=== PATIENT | female | born 1955 | race Caucasian/White ===

== ENCOUNTER 2019-08-27 19:55 | Inpatient (IN) | payer OTHER ==
[2019-08-27] MEDS ORDERED: ACETAMINOPHEN TAB 500 MG TAB PO STA (20:55)
--- NOTE | 2019-08-27 20:58 | ED ---
General Adult HPI - General Chief complaint: Shortness of Breath Stated complaint: SOB Time Seen by Provider: 08/27/19 20:35 Source: patient, RN notes reviewed Mode of arrival: ambulatory Limitations: no limitations - History of Present Illness Initial comments: Patient is a pleasant 63-year-old female presenting to the emergency Department with complaints of fever and shortness of breath. Symptoms started 3-4 days ago with fever. Patient has occasional myalgias. Patient has had cough. Cough was dry and then clear sputum. Now with occasional mild pink sputum. Patient does feel somewhat short of breath. Patient is fatigued. Patient denies any history of similar symptoms previously. No chronic lung disease or asthma or COPD. - Related Data Allergies Allergy/AdvReac Type Severity Reaction Status Date / Time soap Allergy Rash/Hives Verified 08/27/19 20:28 Review of Systems ROS Statement: Those systems with pertinent positive or pertinent negative responses have been documented in the HPI. ROS Other: All systems not noted in ROS Statement are negative. Constitutional: Reports: fever, chills Eyes: Denies: eye pain ENT: Denies: ear pain Respiratory: Reports: cough, dyspnea Cardiovascular: Denies: chest pain Endocrine: Reports: fatigue Gastrointestinal: Denies: abdominal pain Genitourinary: Denies: dysuria Musculoskeletal: Denies: back pain Skin: Denies: rash Neurological: Denies: weakness Past Medical History Past Medical History: GERD/Reflux, Hypertension History of Any Multi-Drug Resistant Organisms: MRSA MDRO Source:: elbow 2009 Additional Past Surgical History / Comment(s): esophagus surgery for GERD. Past Psychological History: Anxiety, Depression Smoking Status: Former smoker Past Alcohol Use History: None Reported Past Drug Use History: Marijuana General Exam Limitations: no limitations General appearance: alert, in no apparent distress Head exam: Present: normocephalic Eye exam: Present: normal appearance Neck exam: Present: normal inspection Respiratory exam: Present: normal lung sounds bilaterally Cardiovascular Exam: Present: regular rate, normal rhythm GI/Abdominal exam: Present: soft. Absent: tenderness Extremities exam: Present: normal inspection. Absent: pedal edema, calf tenderness Neurological exam: Present: alert Psychiatric exam: Present: normal affect, normal mood Skin exam: Present: normal color Course Vital Signs 08/27/19 08/27/19 08/27/19 20:23 22:22 23:10 Temperature 100.6 F H 99.0 F Pulse Rate 108 H 105 H 87 Respiratory 22 18 18 Rate Blood Pressure 139/80 116/72 116/73 O2 Sat by Pulse 96 98 95 Oximetry - Reevaluation(s) Reevaluation #1: 08/27/19 23:26 Patient does meet sepsis criteria diagnosed at 2320. Blood culture and lactic acid and IV antibiotics have all been ordered. Patient reevaluated and updated. Case was discussed in detail with Dr. Aguilera, who will admit covering for hospital call. EKG Findings - EKG Comments: EKG Findings:: Normal sinus rhythm 92. ME 134. QRS 90. QT 374. QTC 462. Left axis. Normal QRS. Nonspecific T waves. Medical Decision Making - Lab Data Result diagrams: 08/27/19 22:01 Lab Results 08/27/19 08/27/19 08/27/19 Range/Units 22:01 22:01 22:01 WBC 25.6 H (3.8-10.6) k/uL RBC 4.57 (3.80-5.40) m/uL Hgb 13.1 (11.4-16.0) gm/dL Hct 40.3 (34.0-46.0) % MCV 88.1 (80.0-100.0) fL MCH 28.7 (25.0-35.0) pg MCHC 32.6 (31.0-37.0) g/dL RDW 12.6 (11.5-15.5) % Plt Count 301 (150-450) k/uL Neutrophils % 87 % Lymphocytes % 6 % Monocytes % 5 % Eosinophils % 1 % Basophils % 0 % Neutrophils # 22.2 H (1.3-7.7) k/uL Lymphocytes # 1.6 (1.0-4.8) k/uL Monocytes # 1.3 H (0-1.0) k/uL Eosinophils # 0.2 (0-0.7) k/uL Basophils # 0.1 (0-0.2) k/uL PT 10.0 (9.0-12.0) sec INR 1.0 (<1.2) APTT 23.0 (22.0-30.0) sec D-Dimer 0.73 H (<0.60) mg/L FEU Plasma Lactic Acid Kayden 1.1 (0.7-2.0) mmol/L - Radiology Data Radiology results: image reviewed (Chest x-ray shows left lower infiltrate and atelectasis.) Critical Care Time Critical Care Time: Yes Total Critical Care Time: 32 Disposition Clinical Impression: Pneumonia, Sepsis Disposition: ADMITTED IP TO THIS [facility] Condition: Serious Is patient prescribed a controlled substance at d/c from ED?: No Referrals: Nonstaff,Physician [Primary Care Provider] - 1-2 days Decision Time: 23:27
--- NOTE | 2019-08-27 21:47 | XR ---
EXAMINATION TYPE: XR chest 1V portable DATE OF EXAM: 08/27/2019 COMPARISON: NONE HISTORY: Cough and fever TECHNIQUE: Single view FINDINGS: There is some linear infiltrate and atelectasis left lower lobe. Right lung is clear. There is no heart failure. Bony thorax is intact. 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 IMPRESSION: Mild linear infiltrate and atelectasis left lower lobe.
[2019-08-27] MEDS ORDERED: cefTRIAXone IN SWFI 1,000 MG/10 ML SYRINGE IVP STA (21:49)
[2019-08-27 22:18] LABS: Basophils # (A) 0.1 k/uL (0-0.2); Basophils % (A) 0 %; Eosinophils # (A) 0.2 k/uL (0-0.7); Eosinophils % (A) 1 %; HCT 40.3 % (34.0-46.0); HGB 13.1 gm/dL (11.4-16.0); Lymphocytes # (A) 1.6 k/uL (1.0-4.8); Lymphocytes % (A) 6 %; MCH 28.7 pg (25.0-35.0); MCHC 32.6 g/dL (31.0-37.0); MCV 88.1 fL (80.0-100.0); Mean Platelet Volume 7.5; Monocytes # (A) 1.3 k/uL (0-1.0); Monocytes % (A) 5 %; Neutrophils # (A) 22.2 k/uL (1.3-7.7); Neutrophils % (A) 87 %; Platelet Count 301 k/uL (150-450); RBC 4.57 m/uL (3.80-5.40); RDW 12.6 % (11.5-15.5); WBC 25.6 k/uL (3.8-10.6)
[2019-08-27 22:29] LABS: Albumin 4.7 g/dL (3.5-5.0); Calcium 9.4 mg/dL (8.4-10.2); Total Bilirubin 0.6 mg/dL (0.2-1.3); Total Protein 8.2 g/dL (6.3-8.2)
[2019-08-27 23:05] LABS: D-Dimer 0.73 mg/L FEU (<0.60)
[2019-08-27] MEDS ORDERED: IPRATROPIUM-ALBUTEROL 3 ML NEB INHALATION PRN (23:27)
[2019-08-27] MEDS ORDERED: PNEUMONIA PROTOCOL UTILIZED 1 EACH MISC PO PRN (23:27)
[2019-08-27] MEDS ORDERED: AZITHROMYCIN 500 MG in SODIUM CHLORIDE 0.9% 250 ML IVPB STA (23:27)
[2019-08-27] MEDS ORDERED: ONDANSETRON 4 MG/2 ML VIAL IVP STA (23:58)
[2019-08-27 23:59] LABS: Magnesium 2.3 mg/dL (1.6-2.3); Potassium 4.9 mmol/L (3.5-5.1)
[2019-08-28 00:37] LABS: C Reactive Protein 554.5 mg/L (<10.0)
--- NOTE | 2019-08-28 03:10 | CT ---
EXAMINATION TYPE: CT angio chest DATE OF EXAM: 08/28/2019 COMPARISON: None HISTORY: SOB CT DLP: 397.60 mGycm Automated exposure control for dose reduction was used. CONTRAST: Performed with IV Contrast, patient injected with 100 mL of Isovue 370. There are 3-D post processed images. There is some airspace consolidation in the posterior left lower lobe. There is some mild infiltrate also in the lingula left upper lobe. There is mild atelectasis at the lung bases. Heart size is fátima l. There is no pericardial effusion. There is no pleural effusion. Upper abdominal soft tissues are i ntact. Thoracic aorta appears normal. There is no sign of aneurysm or dissection. The ascending aorta measur es 3.4 cm. There is no mediastinal adenopathy. There are no hilar masses. There is normal contrast op acification of the pulmonary arteries. I see no filling defect. The bony thorax is intact. Upper abdo melissa soft tissues are intact. There is no thoracic compression fracture. IMPRESSION: No evidence of pulmonary embolism. There is pneumonia in the left lower lobe and also small pneumonia in the lingula left upper lobe.
[2019-08-28] MEDS ORDERED: LORazepam 1 MG TAB PO PRN (03:23)
--- NOTE | 2019-08-28 03:36 | P.HPIM ---
History of Present Illness H&P Date: 08/28/19 Chief Complaint: coughin , fever 63-year-old female with hypertension, hyperlipidemia, gerd Patient comes in due to one-week history of productive coughing of initially clear then became whitish pinkish sputum with pleuritic chest pain and shortness of breath also admits to sore throat fevers and chills. She denies any sick contacts however she has recently traveled from [place] and arrived here in [place] about 10 days ago she drove by car she reports that she is been extremely careful following self hygiene contact precautions wearing mask and self isolating. She denies any sick contacts or contacts of any known Covid patient's The symptoms progressed and became worse now associated with dry heaves. Which is not improving with Zofran in the ED She also says that she had a tick bite when she was working in her mother's yard Otherwise she denies any abdominal pain diarrhea or changes in her urinary habits denies any GI bleeding. She has hypertension controlled with lisinopril She takes aspirin and atorvastatin at home for hyperlipidemia Visit history of GERD status post nisin fundoplication In the ED chest x-ray showed left lower lobe infiltrate CT angios the chest due to elevated d-dimer showed consolidation left lower lobe with no PE Patient admitted for pneumonia with sepsis her white counts 25 she has elevated LDH and CRP EKG showed diffuse T wave inversion Lactic acid was 1.1 Review of Systems Pertinent positives as noted in HPI. All other systems were reviewed and are negative Past Medical History Past Medical History: GERD/Reflux, Hypertension History of Any Multi-Drug Resistant Organisms: MRSA MDRO Source:: elbow 2009 Additional Past Surgical History / Comment(s): esophagus surgery for GERD. Past Psychological History: Anxiety, Depression Smoking Status: Former smoker Past Alcohol Use History: None Reported Past Drug Use History: Marijuana - Past Family History family Family Medical History: No Reported History Medications and Allergies Allergies Allergy/AdvReac Type Severity Reaction Status Date / Time soap Allergy Rash/Hives Verified 08/27/19 20:28 Physical Exam Vitals: Vital Signs Temp Pulse Resp BP Pulse Ox 08/28/19 00:09 96 08/28/19 00:04 85 18 111/70 94 L 08/27/19 23:10 87 18 116/73 95 08/27/19 22:22 99.0 F 105 H 18 116/72 98 08/27/19 20:23 100.6 F H 108 H 22 139/80 96 Intake and Output 08/27/19 08/27/19 08/28/19 14:59 22:59 06:59 Other: Weight 77.111 kg Constitutional: No acute distress, conversant, pleasant Eyes: Anicteric sclerae, moist conjunctiva, Pupils equal round reactive to light ENMT: NC/AT Oropharynx clear, no erythema, or exudates Neck: Supple, FROM, no masses, or JVD No carotid bruits No thyromegaly Lungs: decrease breath sounds, due to poor effort secondary to pleuritic chest pain Clear to percussion Normal respiratory effort, no accessory muscle use Cardiovascular: Heart regular in rate and rhythm, No murmurs, gallops, or rubs No peripheral edema Abdominal: Soft Nontender, no guarding, rebound or rigidity Abdomen moving with respiration Normoactive bowel sounds No hepatomegaly, No splenomegaly No palpable mass No abdominal wall hernia noted Skin: Normal temperature, tone, texture, turgor No induration No subcutaneous nodules No rash, lesions No ulcers Extremities: No digital cyanosis No clubbing Pedal pulses intact and symmetrical Radial pulses intact and symmetrical No calf tenderness Psychiatric: Alert and oriented to person, place and time Appropriate affect fair judgement Neuro Muscles Strength 5/5 in all 4 extremities Sensation to light touch grossly present throughout Cranial nerves II-XII grossly intact No focal sensory deficits Lymphatics: no palpable cervical or supraclavicular , or inguinal lymph nodes Results CBC & Chem 7: 08/27/19 22:01 08/27/19 22:01 Labs: Abnormal Lab Results - Last 24 Hours (Table) 08/27/19 08/27/19 08/27/19 Range/Units 22:01 22:01 22:01 WBC 25.6 H (3.8-10.6) k/uL Neutrophils # 22.2 H (1.3-7.7) k/uL Monocytes # 1.3 H (0-1.0) k/uL D-Dimer 0.73 H (<0.60) mg/L FEU Sodium 135 L (137-145) mmol/L Carbon Dioxide 21 L (22-30) mmol/L BUN 19 H (7-17) mg/dL Glucose 108 H (74-99) mg/dL AST 42 H (14-36) U/L Lactate Dehydrogenase 918 H (313-618) U/L C-Reactive Protein 554.5 H (<10.0) mg/L Assessment and Plan Assessment: 63-year-old female with hypertension and hyperlipidemia comes in due to one-week history of productive cough shortness of breath fevers and chills diagnosed with community-acquired pneumonia and sepsis admitted for IV antibiotics and rule out covid sepsis community acquired pneumonia, rule out COVID 19 rocephine and azithro follow up culture follow COVID results pain control supplemental oxygen IVF hydration breathing treatment pRN CTA chest , no PE, left lower lobe consolidation chronic conditions hypertension chronic GERD hyperlipidemia resume home meds CODE STATUS:full code DVT prophylaxis: hepairn sc tid Discussed with: Patient, ER, RN Anticipated length of stay > than [address]: home A total of 75 minutes was spent on the care of this complex patient more than 50% of the time was spent in counseling and care coordination.
[2019-08-28] MEDS: PROCHLORPERAZINE 10 MG TAB PO PRN ×2 (03:39→12:27)
[2019-08-28] MEDS: ASPIRIN 81 MG PO SCH ×2 (03:42→21:30)
[2019-08-28] MEDS: ATORVASTATIN 20 MG TAB PO SCH ×2 (03:42→21:30)
[2019-08-28] MEDS: SODIUM CHLORIDE 0.9% 1,000 ML IV SCH ×3 (03:43→21:31)
[2019-08-28] MEDS: ACETAMINOPHEN TAB 325 MG TAB PO PRN ×2 (05:54→15:09)
--- NOTE | 2019-08-28 08:14 | XR ---
EXAMINATION TYPE: XR chest 1V DATE OF EXAM: 08/28/2019 COMPARISON: 08/27/2019 chest x-ray and CT dated 08/28/2019 HISTORY: Follow-up for pneumonia. TECHNIQUE: Single frontal view of the chest is obtained. FINDINGS: Stable small lingular opacity. Left upper lobe opacity seen on the prior CT is not demonst rated radiographically. Cardiomediastinal silhouette is stable. Right lung is well aerated. No acute osseous process. Degenerative change of the spine and shoulders. IMPRESSION: Stable lingular opacity. The previously seen left upper lobe opacity in the prior CT is not seen on chest x-ray.
[2019-08-28] MEDS: AZITHROMYCIN 500 MG TAB PO SCH (08:37)
[2019-08-28] MEDS: PANTOPRAZOLE 40 MG TABLET PO SCH ×2 (08:38→21:30)
[2019-08-28] MEDS: HEPARIN SODIUM,PORCINE 5,000 UNIT/ML 1 ML VIAL SQ SCH ×4 (08:38→23:53)
[2019-08-28] MEDS: LISINOPRIL 20 MG TAB PO SCH (08:38)
[2019-08-28] MEDS: IPRATROPIUM-ALBUTEROL 3 ML NEB INHALATION SCH ×4 (09:09→19:50)
--- NOTE | 2019-08-28 11:08 | P.PN ---
Progress Note - Text Progress Note Date: 08/28/19 Patient was seen and examined, she is currently on antibiotics for community- acquired pneumonia. Follow WBC and other labs in am. Covid 19 test sent and is currently pending.
[2019-08-28 20:00] LABS: Ferritin 215.1 ng/mL (10.0-291.0)
[2019-08-29] MEDS: SODIUM CHLORIDE 0.9% 1,000 ML IV SCH ×2 (05:20→16:11)
[2019-08-29] MEDS: IPRATROPIUM-ALBUTEROL 3 ML NEB INHALATION SCH ×4 (07:20→19:37)
[2019-08-29] MEDS: LISINOPRIL 20 MG TAB PO SCH (08:11)
[2019-08-29] MEDS: HEPARIN SODIUM,PORCINE 5,000 UNIT/ML 1 ML VIAL SQ SCH ×3 (08:11→23:26)
[2019-08-29] MEDS: PANTOPRAZOLE 40 MG TABLET PO SCH ×2 (08:11→17:32)
[2019-08-29] MEDS: AZITHROMYCIN 500 MG TAB PO SCH (08:11)
[2019-08-29 08:33] LABS: Basophils # (A) 0.1 k/uL (0-0.2); Basophils % (A) 0 %; Eosinophils # (A) 0.1 k/uL (0-0.7); Eosinophils % (A) 1 %; HCT 38.2 % (34.0-46.0); HGB 12.6 gm/dL (11.4-16.0); Hypochromasia Slight; Lymphocytes # (A) 1.9 k/uL (1.0-4.8); Lymphocytes % (A) 10 %; MCH 29.6 pg (25.0-35.0); MCHC 32.8 g/dL (31.0-37.0); MCV 90.1 fL (80.0-100.0); Monocytes # (A) 1.4 k/uL (0-1.0); Monocytes % (A) 7 %; Neutrophils # (A) 15.8 k/uL (1.3-7.7); Neutrophils % (A) 81 %; Platelet Count 283 k/uL (150-450); RBC 4.24 m/uL (3.80-5.40); RDW 12.9 % (11.5-15.5); WBC 19.6 k/uL (3.8-10.6)
[2019-08-29 09:12] LABS: ALT 65 U/L (4-34); AST 101 U/L (14-36); African American GFR (CKD) >90 (>60 ml/min/1.73 sqM); Albumin 3.5 g/dL (3.5-5.0); Alkaline Phosphatase 115 U/L (38-126); Anion Gap 14 mmol/L; Blood Urea Nitrogen 10 mg/dL (7-17); Calcium 8.4 mg/dL (8.4-10.2); Carbon Dioxide 21 mmol/L (22-30); Chloride 104 mmol/L (98-107); Glucose 111 mg/dL (74-99); Magnesium 2.1 mg/dL (1.6-2.3); Non-African American GFR(CKD) >90 (>60 ml/min/1.73 sqM); Phosphorus 2.1 mg/dL (2.5-4.5); Potassium 4.3 mmol/L (3.5-5.1); Sodium 139 mmol/L (137-145); Total Bilirubin 0.3 mg/dL (0.2-1.3); Total Protein 6.4 g/dL (6.3-8.2)
[2019-08-29] MEDS ORDERED: BUTALB/APAP/CAFF 50-325-40MG TAB PO STA (12:54)
--- NOTE | 2019-08-29 13:01 | P.PN ---
Subjective Progress Note Date: 08/29/19 Principal diagnosis: SOB Patient has been having hemoptysis with her coughing over the past 3-4 days. She is still continuing to have shortness of breath and weakness with walking. She also has left lower rib cage pain. No fevers or chills. No nausea or vomiting. Objective - Vital Signs Vital signs: Vital Signs Temp 99.5 F 08/29/19 07:25 Pulse 84 08/29/19 11:16 Resp 18 08/29/19 07:25 BP 149/75 08/29/19 07:25 Pulse Ox 93 L 08/29/19 07:25 Intake & Output 08/28/19 08/29/19 08/29/19 18:59 06:59 18:59 Intake Total 800 Balance 800 Intake: IV 800 Sodium Chloride 0.9% 1, 800 000 ml @ 100 mls/hr IV . Q10H [facility] Rx#:[id number] Other: Voiding Method Toilet # Voids 1 - Exam Constitutional: No acute distress, conversant, pleasant Eyes:Anicteric sclerae, moist conjunctiva, no lid-lag, PERRLA, ENMT: Oropharynx clear, no erythema, exudates Neck: Supple, FROM, no masses, or JVD, No carotid bruits, No thyromegaly Lungs: Clear to auscultation, Clear to percussion, Normal respiratory effort, no accessory muscle use Cardiovascular: Heart regular in rate and rhythm, No murmurs, gallops, or rubs, No peripheral edema Abdominal: Soft, Nontender, no guarding, rebound or rigidity, Normoactive bowel sounds, No hepatomegaly, No splenomegaly, No palpable mass Skin: Normal temperature, tone, texture, turgor, no induration, No subcutaneous nodules, No rash, lesions, No ulcers Extremities: No digital cyanosis, No clubbing, Pedal pulses intact and symmetrical, Radial pulses intact and symmetrical, No calf tenderness Psychiatric: Alert and oriented to person, place and time, appropriate affect, intact judgement Neuro: Muscles Strength 5/5 in all 4 extremities, Sensation to light touch grossly present throughout, Cranial nerves II-XII grossly intact, no focal sensory deficits - Labs CBC & Chem 7: 08/29/19 08:02 08/29/19 08:02 Labs: Abnormal Lab Results - Last 24 Hours (Table) 08/27/19 08/29/19 08/29/19 Range/Units 22:01 08:02 08:02 WBC 19.6 H (3.8-10.6) k/uL Neutrophils # 15.8 H (1.3-7.7) k/uL Monocytes # 1.4 H (0-1.0) k/uL Carbon Dioxide 21 L (22-30) mmol/L Glucose 111 H (74-99) mg/dL Phosphorus 2.1 L (2.5-4.5) mg/dL AST 101 H (14-36) U/L ALT 65 H (4-34) U/L Procalcitonin 0.35 H (0.02-0.09) ng/mL Microbiology - Last 24 Hours (Table) 08/27/19 20:30 Gram Stain - Preliminary Sputum Sputum Culture - Preliminary 08/27/19 22:01 Blood Culture - Preliminary Blood No Growth after 24 hours Assessment and Plan Plan: sepsis/community acquired pneumonia, COVID 19 ruled out, tested negative 2 Continue rocephine and azithro Prednisone Blood and sputum culture is pending supplemental oxygen IVF hydration breathing treatment pRN CTA chest , no PE, left lower lobe consolidation Headaches and left lower rib cage pain Fioricet when necessary Mouth herpes ulcers Start acyclovir 400 mg 3 times a day for 7 days per IDs recommendation chronic conditions hypertension chronic GERD hyperlipidemia resume home meds Discussed with: Patient Anticipated discharge: 2-[address]: home
[2019-08-29] MEDS: PROCHLORPERAZINE 10 MG TAB PO PRN ×2 (13:08→18:23)
[2019-08-29] MEDS: ACYCLOVIR 200 MG CAP PO SCH ×2 (13:09→20:56)
[2019-08-29] MEDS: BUTALB/APAP/CAFF 50-325-40MG TAB PO PRN (18:24)
--- NOTE | 2019-08-29 19:06 | CONS ---
CONSULTATION PULMONARY/CRITICAL CARE CONSULTATION: DATE OF SERVICE: 08/29/2019 This is a very pleasant 63-year-old female who presented to the emergency department on August 26 at 1955 hours. She apparently was complaining of fever and shortness of breath. She had had symptoms for about 3 or 4 days prior to presenting to the emergency department. She also has occasional muscle aches. She did have a cough. The cough was dry and then she would produce occasional clear phlegm. Also, more recently, she was coughing up some blood. The patient is feeling a bit better today than she did when she first came in. She does still have some shortness of breath, particularly on exertion. She is feeling fatigued. She denies any chest pain or chest discomfort. She also denies any headache or any neurologic complaints. Likewise, she denies any nausea, vomiting, diarrhea or abdominal pain. She also denies all genitourinary complaints. She denies any prior history of chronic lung disease, including asthma, COPD, emphysema, etc. ALLERGIES: SOAP. HOME MEDICATIONS: Home medications include Fioricet, Mycostatin cream, vitamin B complex, Flonase nasal spray, multiple vitamins, vitamin D3 with calcium, low-dose aspirin, Ativan, Lipitor and lisinopril. MEDICAL HISTORY: Medical history is reviewed. She has a history of hypertension and acid reflux disease. She also has a prior history of MRSA infection involving the elbow back in 2009. SURGICAL HISTORY: Her surgical history includes, among other things, esophageal surgery for gastroesophageal reflux disease. SOCIAL HISTORY: Positive for remote minimal tobacco use. She denies any alcohol use. She has used marijuana in the past. FAMILY HISTORY: Noncontributory. Mother and father are both apparently healthy. REVIEW OF SYSTEMS: CONSTITUTIONAL: Negative. NEUROLOGIC: Negative. HEENT: Negative. CARDIOVASCULAR: Negative. PULMONARY: Shortness of breath, cough, occasional phlegm production, occasional hemoptysis. GI: Negative. : Negative. RHEUMATOLOGIC: Negative. IMMUNOLOGIC: Negative. ENDOCRINOLOGIC: Negative. DERMATOLOGIC: Negative. PHYSICAL EXAMINATION: VITAL SIGNS: Current vital signs are reviewed. T-max is 102.5. Current temperature is 99.5. Heart rate 86, respiratory rate 18, blood pressure 149/75, mean 99, and 3-liter saturation is between 93% and 95%. GENERAL APPEARANCE: Appears in no acute distress. HEENT: Examination is grossly unremarkable. Nasal oxygen noted. NECK: Supple. Full range of motion. No adenopathy. Neck veins are flat. CARDIOVASCULAR: Examination reveals regular rhythm and rate. S1, S2 normal. No S3, S4 or murmur. Heart sounds are distant. LUNGS: Lungs reveal a few scattered mild rhonchi. No wheezes or crackles. Breath sounds equal. Lung auscultation is very unimpressive. ABDOMEN: Soft. Bowel sounds are heard. EXTREMITIES: Extremities are intact. No cyanosis, clubbing or edema. SKIN: Without rash. NEUROLOGIC: Neurologic examination is brief but nonfocal. LABS: Reviewed. White count was 19.6, hemoglobin 12.6, hematocrit 38.2, platelet count 283,000. On 08/26 her white blood count was 25.6. PT, INR, PTT all normal. D-dimer 0.73. Sodium, potassium, chloride all normal. CO2 21. BUN and creatinine were 10 and 0.7. Anion gap was 14. Glucose 111, phosphorus 2.1. AST and ALT were 101 and 65, respectively. LDH 918. C-reactive protein 554. Ferritin level was 215.1. Procalcitonin 0.35. COVID-19 testing was negative. Microbiologic tests, including blood and sputum sampling, were negative. Chest x-ray from 08/26 shows evidence of some 08/27 shows no evidence of pulmonary embolism. There are mostly some patchy infiltrates both in the left upper lobe and left lower lobe. CURRENT MEDICATIONS: Current medications are reviewed. She is on Tylenol, acyclovir, aspirin, Lipitor, azithromycin, Symbicort, Rocephin, Fioricet, subcutaneous heparin, DuoNeb, lisinopril, Ativan, Protonix, pneumonia protocol, prednisone 30 mg a day, Compazine and saline IV. ASSESSMENT: 1. Pneumonia, community-acquired, left lower lobe and left upper lobe, with COVID-19 ruled out. 2. Gastroesophageal reflux disease. 3. Hypertension. 4. Hyperlipidemia. 5. Allergic rhinitis. 6. No significant history of intrinsic pulmonary disease. PLAN: Currently, the patient is on appropriate medications, including DuoNeb, Symbicort and steroids. She does apparently have a history she remembers of mild asthma. This did not come out initially. Hence she is currently on Symbicort, updrafts and a small dose of prednisone. She is on good antibiotics in form of the ceftriaxone and Zithromax. Will continue to follow. Prognosis is guarded. Follow-up chest x-ray down the road. The x-ray shows a very non-impressive infiltrate in the left lower lobe. MMODL / IJN: [id number] /
[2019-08-29] MEDS: ACETAMINOPHEN TAB 325 MG TAB PO PRN (19:32)
[2019-08-29] MEDS: SYMBICORT 160-4.5 MCG INHALER INHALATION SCH (19:37)
[2019-08-29] MEDS ORDERED: HEPARIN SODIUM,PORCINE 5,000 UNIT/ML 1 ML VIAL SQ SCH (20:43)
[2019-08-29] MEDS: ASPIRIN 81 MG PO SCH (20:56)
[2019-08-29] MEDS: ATORVASTATIN 20 MG TAB PO SCH (20:56)
[2019-08-29] MEDS: LEVOFLOXACIN 750 MG TAB PO SCH (23:26)
[2019-08-30] MEDS: BUTALB/APAP/CAFF 50-325-40MG TAB PO PRN ×4 (00:19→21:14)
[2019-08-30] MEDS: SODIUM CHLORIDE 0.9% 1,000 ML IV SCH ×3 (01:13→21:16)
--- NOTE | 2019-08-30 01:16 | P.CONS ---
History of Present Illness - Reason for Consult Consult date: 08/29/19 R/O covid , pneumonia Requesting physician: Wanda Ly - Chief Complaint shortness of breath and cough x 4 days - History of Present Illness Patient is 63-year female presenting to the ER at [facility] 2 days ago with chief complaints of increasing shortness of breath and cough patient still has going on since the weekend for about 3 to 4 days before she presented to hospital patient started not feeling well and rundown and then started having a cough which was initially dry moderate intensity subsequently has some whitish to slightly darkish sputum denies any hemoptysis some no repeat chest pain from coughing has been nauseated but no vomiting no abdominal pain and no diarrhea also complaining of fever for the last 3 days with the symptom the patient was evaluated by the ER physician on arrival to the ER patient did have a fever 100.6 subsequently had a fever of 102.5 F patient was tachycardic on presentation to the hospital and did have white count 25,000 repeat is 20.6 thousand today patient did have COVID-19 distal ischemic negative CRP was elevated as well as procalcitonin level sputum culture has been repeated patient did have a chest x-ray did show some left lower lobe atelectasis a CT angiogram was done that was negative for PE however did shows evidence of pneumonia left lower lobe and small pneumonia in lingula left upper lobe patient was started on Rocephin and Zithromax admitted to hospital infectious disease was consulted for further recommendation regarding antibiotic therapy patient mention she recently was diagnosed with pneumonia in outpatient setting sputum was obtained which did shows Haemophilus and the patient was treated on Zithromax. Review of Systems Positive point has been mentioned in HPI rest of the systems are negative Past Medical History Past Medical History: GERD/Reflux, Hypertension History of Any Multi-Drug Resistant Organisms: MRSA Year Discovered:: unknown MDRO Source:: elbow 2009 Additional Past Surgical History / Comment(s): esophagus surgery for GERD. Past Anesthesia/Blood Transfusion Reactions: No Reported Reaction Past Psychological History: Anxiety, Depression Smoking Status: Former smoker Past Alcohol Use History: None Reported Past Drug Use History: Marijuana - Past Family History family Family Medical History: No Reported History Medications and Allergies Home Medications Medication Instructions Recorded Confirmed Type Aspirin [Adult Low Dose Aspirin EC] 81 mg PO HS 08/29/19 08/29/19 History Atorvastatin [Lipitor] 40 mg PO HS 08/29/19 08/29/19 History Butalb/APAP/Caff 50-325-40Mg 2 tab PO Q6H PRN 08/29/19 08/29/19 History [Fioricet 50-325-40] Calcium Carbonate/Vitamin D3 1 tab PO DAILY 08/29/19 08/29/19 History [Calcium 600-Vit D3 400 Tablet] Fluticasone Nasal [place] [Flonase 2 spr EA NOSTRIL DAILY 08/29/19 08/29/19 History Nasal [place]] LORazepam [Ativan] 1 mg PO BID 08/29/19 08/29/19 History Lisinopril 40 mg PO DAILY 08/29/19 08/29/19 History Multivit-Min/Iron/Folic/Lutein 1 tab PO DAILY 08/29/19 08/29/19 History [Centrum Silver Women Tablet] Nystatin 100,000Unit/gm Cream 1 applic TOPICAL BID 08/29/19 08/29/19 History [Mycostatin Cream] Vitamin B Complex 1 tab PO DAILY 08/29/19 08/29/19 History Allergies Allergy/AdvReac Type Severity Reaction Status Date / Time soap Allergy Rash/Hives Verified 08/27/19 20:28 Physical Exam Vitals: Vital Signs Temp Pulse Pulse Resp BP BP Pulse Ox 08/29/19 07:40 86 08/29/19 07:27 84 08/29/19 07:25 99.5 F 95 18 149/75 93 L 08/29/19 03:26 98.7 F 81 18 115/73 93 L 08/28/19 20:08 90 08/28/19 19:50 88 08/28/19 18:07 99.6 F 93 16 118/74 95 08/28/19 16:53 91 18 108/61 97 08/28/19 15:57 90 08/28/19 15:45 92 08/28/19 15:07 100.2 F H 96 18 122/63 89 L 08/28/19 14:50 78 18 122/63 100 08/28/19 12:57 96 08/28/19 12:48 97 Intake and Output 08/28/19 08/29/19 08/29/19 22:59 06:59 14:59 Intake Total 800 Balance 800 Intake: IV 800 Sodium Chloride 0.9% 1, 800 000 ml @ 100 mls/hr IV . Q10H [facility] Rx#:[id number] Other: Voiding Method Toilet # Voids 1 1 GENERAL DESCRIPTION: Elderly female lying in bed, no distress. No tachypnea or accessory muscle of respiration use. HEENT: Shows Pallor , no scleral icterus. Oral mucous membrane is dry. NECK: Trachea central, no thyromegaly. LUNGS: Unlabored breathing. Coarse breath sound at the bases. No wheeze or arts and crafts teacher ckle. HEART: S1, S2, regular rate and rhythm. ABDOMEN: Soft, no tenderness , guarding or rigidity EXTREMITIES: No edema of feet. SKIN: No rash, no masses palpable. NEUROLOGICAL: The patient is awake, alert, oriented x3, mood and affect normal. Results CBC & Chem 7: 08/29/19 08:02 08/29/19 08:02 Labs: Abnormal Lab Results - Last 24 Hours (Table) 08/27/19 08/29/19 08/29/19 Range/Units 22:01 08:02 08:02 WBC 19.6 H (3.8-10.6) k/uL Neutrophils # 15.8 H (1.3-7.7) k/uL Monocytes # 1.4 H (0-1.0) k/uL Carbon Dioxide 21 L (22-30) mmol/L Glucose 111 H (74-99) mg/dL Phosphorus 2.1 L (2.5-4.5) mg/dL AST 101 H (14-36) U/L ALT 65 H (4-34) U/L Procalcitonin 0.35 H (0.02-0.09) ng/mL Microbiology - Last 24 Hours (Table) 08/27/19 20:30 Gram Stain - Preliminary Sputum Sputum Culture - Preliminary 08/27/19 22:01 Blood Culture - Preliminary Blood No Growth after 24 hours Assessment and Plan Assessment: -patient presented hospital with sepsis in this patient who did have a fever tachycardia elevated white count as well as left lower lobe pneumonia more likely community-acquired with a question of tuberculosis atypical pathogen with a recent history of Haemophilus influenza in the sputum could be the same pathogen patient has been lower for COVID-19 (1) Pneumonia Current Visit: Yes Status: Acute Code(s): J18.9 - PNEUMONIA, UNSPECIFIED ORGANISM SNOMED Code(s): 044408081 (2) Sepsis Current Visit: Yes Status: Acute Code(s): A41.9 - SEPSIS, UNSPECIFIED OR GANISM SNOMED Code(s): 10752422 Plan: 1-we will increase Rocephin to 2 g daily and with recent outpatient Zithromax exposure we will start the patient on Levaquin 750 mg p.o. daily 2-gentle IV fluid 3-blood and sputum cultures will be followed daily We will follow on clinical condition and cultures to further adjust medication if needed Thank you for this consultation we will follow the patient along with you Time with Patient: Greater than 30
[2019-08-30] MEDS: PROCHLORPERAZINE 10 MG TAB PO PRN ×3 (01:33→16:23)
[2019-08-30] MEDS: IPRATROPIUM-ALBUTEROL 3 ML NEB INHALATION SCH ×4 (07:22→19:18)
[2019-08-30] MEDS: SYMBICORT 160-4.5 MCG INHALER INHALATION SCH ×2 (07:23→19:18)
[2019-08-30] MEDS: HEPARIN SODIUM,PORCINE 5,000 UNIT/ML 1 ML VIAL SQ SCH ×3 (07:50→23:42)
[2019-08-30] MEDS: ACYCLOVIR 200 MG CAP PO SCH ×3 (07:51→21:13)
[2019-08-30] MEDS: LISINOPRIL 20 MG TAB PO SCH (07:51)
[2019-08-30] MEDS: PANTOPRAZOLE 40 MG TABLET PO SCH ×2 (07:51→16:23)
[2019-08-30] MEDS: LEVOFLOXACIN 750 MG TAB PO SCH (07:51)
[2019-08-30] MEDS ORDERED: predniSONE 10 MG TAB PO SCH (09:00)
[2019-08-30 09:05] LABS: Basophils % (A) 0 %; Eosinophils # (A) 0.1 k/uL (0-0.7); Eosinophils % (A) 0 %; HCT 35.7 % (34.0-46.0); HGB 11.3 gm/dL (11.4-16.0); Lymphocytes # (A) 1.7 k/uL (1.0-4.8); Lymphocytes % (A) 10 %; MCH 27.8 pg (25.0-35.0); MCHC 31.6 g/dL (31.0-37.0); MCV 88.2 fL (80.0-100.0); Mean Platelet Volume 7.6; Monocytes # (A) 1.3 k/uL (0-1.0); Monocytes % (A) 8 %; Neutrophils % (A) 79 %; Platelet Count 312 k/uL (150-450); RBC 4.05 m/uL (3.80-5.40); RDW 12.7 % (11.5-15.5); WBC 16.4 k/uL (3.8-10.6)
[2019-08-30 09:11] LABS: ALT 141 U/L (4-34); AST 230 U/L (14-36); African American GFR (CKD) >90 (>60 ml/min/1.73 sqM); Albumin 3.3 g/dL (3.5-5.0); Alkaline Phosphatase 148 U/L (38-126); Anion Gap 12 mmol/L; Blood Urea Nitrogen 6 mg/dL (7-17); Calcium 8.5 mg/dL (8.4-10.2); Carbon Dioxide 23 mmol/L (22-30); Chloride 103 mmol/L (98-107); Glucose 109 mg/dL (74-99); Magnesium 1.8 mg/dL (1.6-2.3); Non-African American GFR(CKD) >90 (>60 ml/min/1.73 sqM); Phosphorus 1.5 mg/dL (2.5-4.5); Potassium 4.1 mmol/L (3.5-5.1); Sodium 138 mmol/L (137-145); Total Bilirubin 0.3 mg/dL (0.2-1.3); Total Protein 6.3 g/dL (6.3-8.2)
--- NOTE | 2019-08-30 11:26 | P.PN ---
Subjective Progress Note Date: 08/30/19 Principal diagnosis: SOB Feeling better, still having fevers. She thinks she is going in the right direction. No pain. Objective - Vital Signs Vital signs: Vital Signs Temp 100.9 F H 08/30/19 06:58 Pulse 90 08/30/19 11:17 Resp 17 08/30/19 06:58 BP 135/88 08/30/19 06:58 Pulse Ox 90 L 08/30/19 06:58 Intake & Output 08/29/19 08/30/19 08/30/19 18:59 06:59 18:59 Intake Total 1340 850 Output Total 800 Balance 1340 -800 850 Intake: IV 800 800 Sodium Chloride 0.9% 1, 800 800 000 ml @ 100 mls/hr IV . Q10H [facility] Rx#:[id number] Intake, IV Titration 50 Amount cefTRIAXone 2 gm In 50 Sodium Chloride 0.9% 50 ml @ 100 mls/hr IVPB Q24H [facility] Rx#:[id number] Oral 540 Output: Urine 800 Other: Voiding Method Toilet # Voids 3 1 - Exam Constitutional: No acute distress, conversant, pleasant Eyes:Anicteric sclerae, moist conjunctiva, no lid-lag, PERRLA, ENMT: Oropharynx clear, no erythema, exudates Neck: Supple, FROM, no masses, or JVD, No carotid bruits, No thyromegaly Lungs: Clear to auscultation, Clear to percussion, Normal respiratory effort, no accessory muscle use Cardiovascular: Heart regular in rate and rhythm, No murmurs, gallops, or rubs, No peripheral edema Abdominal: Soft, Nontender, no guarding, rebound or rigidity, Normoactive bowel sounds, No hepatomegaly, No splenomegaly, No palpable mass Skin: Normal temperature, tone, texture, turgor, no induration, No subcutaneous nodules, No rash, lesions, No ulcers Extremities: No digital cyanosis, No clubbing, Pedal pulses intact and symmetrical, Radial pulses intact and symmetrical, No calf tenderness Psychiatric: Alert and oriented to person, place and time, appropriate affect, intact judgement Neuro: Muscles Strength 5/5 in all 4 extremities, Sensation to light touch grossly present throughout, Cranial nerves II-XII grossly intact, no focal sensory deficits - Labs CBC & Chem 7: 08/30/19 07:49 08/30/19 07:49 Labs: Abnormal Lab Results - Last 24 Hours (Table) 08/30/19 08/30/19 Range/Units 07:49 07:49 WBC 16.4 H (3.8-10.6) k/uL Hgb 11.3 L (11.4-16.0) gm/dL Neutrophils # 13.0 H (1.3-7.7) k/uL Monocytes # 1.3 H (0-1.0) k/uL BUN 6 L (7-17) mg/dL Glucose 109 H (74-99) mg/dL Phosphorus 1.5 L (2.5-4.5) mg/dL AST 230 H (14-36) U/L ALT 141 H (4-34) U/L Alkaline Phosphatase 148 H (38-126) U/L Albumin 3.3 L (3.5-5.0) g/dL Microbiology - Last 24 Hours (Table) 08/27/19 22:01 Blood Culture - Preliminary Blood No Growth after 48 hours 08/27/19 20:30 Gram Stain - Preliminary Sputum Sputum Culture - Preliminary Assessment and Plan Plan: sepsis/community acquired pneumonia, CTA chest showing no PE, left lower lobe consolidation COVID 19 ruled out, tested negative 2 Continue rocephine and levaquin Prednisone--wean down to 20mg daily. Blood cx negative Sputum culture is pending supplemental oxygen IVF hydration breathing treatment pRN Headaches and left lower rib cage pain Fioricet when necessary Herpes ulcers on the upper lip Acyclovir 400 mg 3 times a day for 7 days per IDs recommendation chronic conditions hypertension chronic GERD hyperlipidemia resume home meds Discussed with: Patient Anticipated discharge: 2-[address]: home
--- NOTE | 2019-08-30 14:36 | P.PN ---
Subjective Progress Note Date: 08/30/19 Principal diagnosis: Left upper and lower lobe community-acquired pneumonia The patient is seen today 08/30/2019 in follow-up in the regular medical floor. She is awake and alert in no acute distress. She is feeling a bit better today compared to yesterday. Less cough and congestion. No chills or night sweats. Less fatigued. Maintaining O2 saturations in the low 90s on 3 L/m per nasal cannula. Still having some spikes in temperature at 100.9 earlier this morning. Blood culture reveals no growth to date. Sputum culture pending. White count 16.4. Hemoglobin 11.3. Sodium 138. Potassium 4.1. Creatinine 0.59. AST 230. ALT 141. She remains on DuoNeb inhalations, Symbicort, prednisone, antibiotics in the form of ceftriaxone and Levaquin. Objective - Vital Signs Vital signs: Vital Signs Temp 100.9 F H 08/30/19 06:58 Pulse 90 08/30/19 11:17 Resp 17 08/30/19 06:58 BP 135/88 08/30/19 06:58 Pulse Ox 90 L 08/30/19 06:58 Intake & Output 08/29/19 08/30/19 08/30/19 18:59 06:59 18:59 Intake Total 1340 850 Output Total 800 Balance 1340 -800 850 Intake: IV 800 800 Sodium Chloride 0.9% 1, 800 800 000 ml @ 100 mls/hr IV . Q10H [facility] Rx#:[id number] Intake, IV Titration 50 Amount cefTRIAXone 2 gm In 50 Sodium Chloride 0.9% 50 ml @ 100 mls/hr IVPB Q24H [facility] Rx#:[id number] Oral 540 Output: Urine 800 Other: Voiding Method Toilet # Voids 3 1 - Exam GENERAL EXAM: Alert, very pleasant 63-year-old female patient, on 3 L nasal cannula, comfortable in no apparent distress. HEAD: Normocephalic. EYES: Normal reaction of pupils, equal size. NOSE: Clear with pink turbinates. THROAT: No erythema or exudates. NECK: No masses, no JVD. CHEST: No chest wall deformity. LUNGS: Equal air entry with scattered rhonchi throughout the left lung. CVS: S1 and S2 normal with no audible murmur, regular rhythm. ABDOMEN: No hepatosplenomegaly, normal bowel sounds, no guarding or rigidity. SPINE: No scoliosis or deformity SKIN: No rashes CENTRAL NERVOUS SYSTEM: No focal deficits, tone is normal in all 4 extremities. EXTREMITIES: There is no peripheral edema. No clubbing, no cyanosis. Peripheral pulses are intact. - Labs CBC & Chem 7: 08/30/19 07:49 08/30/19 07:49 Labs: Abnormal Lab Results - Last 24 Hours (Table) 08/30/19 08/30/19 Range/Units 07:49 07:49 WBC 16.4 H (3.8-10.6) k/uL Hgb 11.3 L (11.4-16.0) gm/dL Neutrophils # 13.0 H (1.3-7.7) k/uL Monocytes # 1.3 H (0-1.0) k/uL BUN 6 L (7-17) mg/dL Glucose 109 H (74-99) mg/dL Phosphorus 1.5 L (2.5-4.5) mg/dL AST 230 H (14-36) U/L ALT 141 H (4-34) U/L Alkaline Phosphatase 148 H (38-126) U/L Albumin 3.3 L (3.5-5.0) g/dL Microbiology - Last 24 Hours (Table) 08/27/19 22:01 Blood Culture - Preliminary Blood No Growth after 48 hours Assessment and Plan Assessment: 1 Acute left upper and lower lobe pneumonia, community-acquired, [place] in 19 negative 2 Gastroesophageal reflux disease 3 Hypertension 4 Hyperlipidemia 5 ALLERGIC rhinitis Plan: The patient was seen and evaluated by Dr. Briceño She is improved today compared to yesterday Continue the current treatment plan Titrate down the FiO2 as tolerated Increase her activity as tolerated We'll continue to follow I, the cosigning physician, performed a history & physical examination of the patient. Lungs sounds with scattered rhonchi throughout the left lung. Maintaining good O2 saturations in the 90s on 3 L/m per nasal cannula. I discussed the assessment and plan of care with my nurse practitioner, Annie Knox. I attest to the above note as dictated by her.
[2019-08-30] MEDS: ASPIRIN 81 MG PO SCH (21:13)
[2019-08-30] MEDS: ATORVASTATIN 20 MG TAB PO SCH (21:13)
--- NOTE | 2019-08-31 00:49 | PN ---
PROGRESS NOTE DATE OF SERVICE: 08/30/2019 REASON FOR FOLLOWUP: Pneumonia. INTERVAL HISTORY: The patient is currently afebrile. She is breathing slightly comfortably. The patient did have a cough and some hemoptysis. No nausea or vomiting. No abdominal pain, no diarrhea. PHYSICAL EXAMINATION: Blood pressure 125/79 with a pulse of 80, temperature 98.2. She is 94% on 2 L nasal cannula. General description is an elderly female lying in bed in no distress. Respiratory system: Unlabored breathing, decreased breath sounds, no wheeze. Heart S1, S2. Regular rate and rhythm. Abdomen soft, no tenderness. LABS: Hemoglobin is 11.3, white count 16.4, creatinine 0.59. Blood and sputum culture so far negative. DIAGNOSTIC IMPRESSION AND PLAN: Patient admitted to the hospital with sepsis, source of pneumonia, likely community- acquired. The patient is currently covered with Rocephin and Levaquin to continue while waiting for the culture to finalize. Continue supportive care. MMODL / IJN: [id number] /
--- NOTE | 2019-08-31 07:21 | XR ---
EXAMINATION TYPE: XR chest 1V DATE OF EXAM: 08/31/2019 COMPARISON: 08/28/2019 HISTORY: Pneumonia. Follow-up exam. TECHNIQUE: Single frontal view of the chest is obtained. FINDINGS: Multifocal linear left basilar opacities remain as well as new linear density at the right costophrenic angle. Cardiomediastinal silhouette is stable. No new sizable pleural effusion or pneum othorax. Degenerative change of the spine and shoulders are redemonstrated. IMPRESSION: Linear left basilar opacity remains and new small right basilar opacity has developed. G iven the linear morphology these opacities may represent atelectasis rather than pneumonia.
[2019-08-31 07:26] LABS: Basophils # (A) 0.1 k/uL (0-0.2); Basophils % (A) 1 %; Eosinophils # (A) 0.2 k/uL (0-0.7); Eosinophils % (A) 1 %; HCT 34.5 % (34.0-46.0); HGB 10.8 gm/dL (11.4-16.0); Lymphocytes # (A) 2.6 k/uL (1.0-4.8); Lymphocytes % (A) 16 %; MCH 27.5 pg (25.0-35.0); MCHC 31.4 g/dL (31.0-37.0); MCV 87.7 fL (80.0-100.0); Mean Platelet Volume 7.7; Monocytes % (A) 6 %; Neutrophils # (A) 12.1 k/uL (1.3-7.7); Neutrophils % (A) 75 %; Platelet Count 338 k/uL (150-450); RBC 3.93 m/uL (3.80-5.40); RDW 12.7 % (11.5-15.5); WBC 16.2 k/uL (3.8-10.6)
[2019-08-31] MEDS: ACYCLOVIR 200 MG CAP PO SCH ×3 (07:39→21:49)
[2019-08-31] MEDS: PANTOPRAZOLE 40 MG TABLET PO SCH ×2 (07:39→16:44)
[2019-08-31] MEDS: HEPARIN SODIUM,PORCINE 5,000 UNIT/ML 1 ML VIAL SQ SCH ×2 (07:39→16:01)
[2019-08-31] MEDS: predniSONE 20 MG TAB PO SCH (07:39)
[2019-08-31] MEDS: LEVOFLOXACIN 750 MG TAB PO SCH (07:39)
[2019-08-31] MEDS: BUTALB/APAP/CAFF 50-325-40MG TAB PO PRN ×4 (07:40→21:50)
[2019-08-31] MEDS: LISINOPRIL 20 MG TAB PO SCH (07:40)
[2019-08-31] MEDS: PROCHLORPERAZINE 10 MG TAB PO PRN ×2 (07:41→16:44)
[2019-08-31 07:44] LABS: Albumin 3.3 g/dL (3.5-5.0); Chloride 108 mmol/L (98-107); Glucose 105 mg/dL (74-99); Total Protein 6.2 g/dL (6.3-8.2)
[2019-08-31 07:45] LABS: ALT 133 U/L (4-34); AST 180 U/L (14-36); African American GFR (CKD) >90 (>60 ml/min/1.73 sqM); Alkaline Phosphatase 131 U/L (38-126); Anion Gap 11 mmol/L; Blood Urea Nitrogen 7 mg/dL (7-17); Calcium 8.9 mg/dL (8.4-10.2); Carbon Dioxide 22 mmol/L (22-30); Magnesium 1.8 mg/dL (1.6-2.3); Non-African American GFR(CKD) >90 (>60 ml/min/1.73 sqM); Phosphorus 2.3 mg/dL (2.5-4.5); Potassium 3.7 mmol/L (3.5-5.1); Sodium 141 mmol/L (137-145); Total Bilirubin 0.3 mg/dL (0.2-1.3)
[2019-08-31] MEDS: SODIUM CHLORIDE 0.9% 1,000 ML IV SCH ×2 (07:49→16:02)
[2019-08-31] MEDS: IPRATROPIUM-ALBUTEROL 3 ML NEB INHALATION SCH ×4 (08:56→21:00)
[2019-08-31] MEDS: SYMBICORT 160-4.5 MCG INHALER INHALATION SCH ×2 (08:57→21:00)
--- NOTE | 2019-08-31 09:01 | US ---
EXAMINATION TYPE: US liver DATE OF EXAM: 08/31/2019 COMPARISON: NONE CLINICAL HISTORY: elevated LFTs. EXAM MEASUREMENTS: Liver Length: 13.1 cm Gallbladder Wall: 0.1 cm CBD: 0.3 cm Right Kidney: 10.5 x 4.3 x 4.8 cm Pancreas: Uncinate process and pancreatic tail are obscured by bowel gas Liver: wnl Gallbladder: wnl. No cholelithiasis or wall thickening. Evidence for sonographic De La Cruz's sign: no CBD: wnl Right Kidney: No hydronephrosis or nephrolithiasis *Right pleural effusion. IMPRESSION: 1. Hepatic echotexture of the liver is grossly unremarkable despite the known transaminitis. 2. No cholelithiasis or sonographic evidence of acute cholecystitis. 3. Right pleural effusion partially visualized.
--- NOTE | 2019-08-31 13:12 | P.PN ---
Subjective Progress Note Date: 08/31/19 Principal diagnosis: Left upper and lower lobe community-acquired pneumonia The patient is seen today 08/30/2019 in follow-up in the regular medical floor. She is awake and alert in no acute distress. She is feeling a bit better today compared to yesterday. Less cough and congestion. No chills or night sweats. Less fatigued. Maintaining O2 saturations in the low 90s on 3 L/m per nasal cannula. Still having some spikes in temperature at 100.9 earlier this morning. Blood culture reveals no growth to date. Sputum culture pending. White count 16.4. Hemoglobin 11.3. Sodium 138. Potassium 4.1. Creatinine 0.59. AST 230. ALT 141. She remains on DuoNeb inhalations, Symbicort, prednisone, antibiotics in the form of ceftriaxone and Levaquin. The patient is seen today 08/31/2019 in follow-up on the regular medical floor. She is currently resting quite comfortably in bed. Still requiring 3 L oxygen by nasal cannula to maintain O2 saturations in the 90s. Sputum culture reveals no growth. Blood culture reveals no growth. White count 16.2. Hemoglobin 10.8 . Sodium 141. Potassium 3.7. Creatinine 0.60. Glucose 105. AST 180, ALT 133. Chest x-ray reveals linear left basilar opacity and a new small right basilar opacity. Most likely atelectasis. Liver ultrasound revealed hepatic echotexture of the liver grossly unremarkable despite known transaminitis. No cholelithiasis. She is currently on Levaquin and ceftriaxone. Remains on oral steroids and bronchodilators. Objective - Vital Signs Vital signs: Vital Signs Temp 98.2 F 08/31/19 07:20 Pulse 88 08/31/19 12:38 Resp 16 08/31/19 07:20 BP 138/81 08/31/19 07:20 Pulse Ox 90 L 08/31/19 07:20 Intake & Output 08/30/19 08/31/19 08/31/19 18:59 06:59 18:59 Intake Total 850 800 Balance 850 800 Intake: IV 800 800 Sodium Chloride 0.9% 1, 800 800 000 ml @ 100 mls/hr IV . Q10H [facility] Rx#:[id number] Intake, IV Titration 50 Amount cefTRIAXone 2 gm In 50 Sodium Chloride 0.9% 50 ml @ 100 mls/hr IVPB Q24H [facility] Rx#:[id number] Other: Voiding Method Toilet - Exam GENERAL EXAM: Alert, very pleasant 63-year-old female patient, on 3 L nasal cannula, comfortable in no apparent distress. HEAD: Normocephalic. EYES: Normal reaction of pupils, equal size. NOSE: Clear with pink turbinates. THROAT: No erythema or exudates. NECK: No masses, no JVD. CHEST: No chest wall deformity. LUNGS: Equal air entry with scattered rhonchi throughout the left lung, faint crackles in the bases. CVS: S1 and S2 normal with no audible murmur, regular rhythm. ABDOMEN: No hepatosplenomegaly, normal bowel sounds, no guarding or rigidity. SPINE: No scoliosis or deformity SKIN: No rashes CENTRAL NERVOUS SYSTEM: No focal deficits, tone is normal in all 4 extremities. EXTREMITIES: There is no peripheral edema. No clubbing, no cyanosis. Peripheral pulses are intact. - Labs CBC & Chem 7: 08/31/19 06:30 08/31/19 06:30 Labs: Abnormal Lab Results - Last 24 Hours (Table) 08/31/19 08/31/19 Range/Units 06:30 06:30 WBC 16.2 H (3.8-10.6) k/uL Hgb 10.8 L (11.4-16.0) gm/dL Neutrophils # 12.1 H (1.3-7.7) k/uL Chloride 108 H (98-107) mmol/L Glucose 105 H (74-99) mg/dL Phosphorus 2.3 L (2.5-4.5) mg/dL AST 180 H (14-36) U/L ALT 133 H (4-34) U/L Alkaline Phosphatase 131 H (38-126) U/L Total Protein 6.2 L (6.3-8.2) g/dL Albumin 3.3 L (3.5-5.0) g/dL Microbiology - Last 24 Hours (Table) 08/27/19 20:30 Gram Stain - Final Sputum Sputum Culture - Final 08/27/19 22:01 Blood Culture - Preliminary Blood No Growth after 72 hours Assessment and Plan Assessment: 1 Acute left upper and lower lobe pneumonia, community-acquired, CoVID 19 negative 2 Gastroesophageal reflux disease 3 Hypertension 4 Hyperlipidemia 5 ALLERGIC rhinitis Plan: The patient was seen and evaluated by Dr. Briceño Chest x-ray, liver ultrasound and labs reviewed Continue the current treatment plan At the incentive spirometer Titrate down the FiO2 as tolerated Increase her activity as tolerated We'll continue to follow I, the cosigning physician, performed a history & physical examination of the patient. Lungs sounds with scattered rhonchi throughout the left lung, crackles in the posterior bases. Maintaining good O2 saturations in the 90s on 3 L/m per nasal cannula. I discussed the assessment and plan of care with my nurse practitioner, Annie Knox. I attest to the above note as dictated by her.
[2019-08-31] MEDS ORDERED: CALCIUM CARBONATE 500 MG CHEWABLE PO PRN (16:39)
--- NOTE | 2019-08-31 16:39 | P.PN ---
Subjective Progress Note Date: 08/31/19 Principal diagnosis: Pneumonia Patient was seen and examined. No acute events overnight. Patient reports slight improvement in her breathing since admission but continues to complain of shortness of breath and cough productive of blood-streaked sputum. She is currently on 3 L nasal cannula. She denies any chest pain or palpitations. No nausea or vomiting. No fever or chills. Oral lip lesions seem to be improving with acyclovir. Objective - Vital Signs Vital signs: Vital Signs Temp 98.2 F 08/31/19 14:57 Pulse 78 08/31/19 14:57 Resp 16 08/31/19 14:57 BP 146/83 08/31/19 14:57 Pulse Ox 90 L 08/31/19 14:57 Intake & Output 08/30/19 08/31/19 08/31/19 18:59 06:59 18:59 Intake Total 850 800 Balance 850 800 Intake: IV 800 800 Sodium Chloride 0.9% 1, 800 800 000 ml @ 100 mls/hr IV . Q10H [facility] Rx#:[id number] Intake, IV Titration 50 Amount cefTRIAXone 2 gm In 50 Sodium Chloride 0.9% 50 ml @ 100 mls/hr IVPB Q24H [facility] Rx#:[id number] Other: Voiding Method Toilet - Exam General: [non toxic], [no distress], [appears at stated age] Derm: [warm], [dry] Head: [atraumatic], [normocephalic], [symmetric] Eyes: [EOMI], [no lid lag], [anicteric sclera] Mouth: [no lip lesion], [mucus membranes moist] Cardiovascular: [S1S2 reg], [no murmur], [positive DP pulse bilateral], Lungs: [Decreased breath sounds bilateral], [scattered rhonchi bilaterally] , [no accessory muscle use] Abdominal: [soft], [ nontender to palpation], [no guarding], [no appreciable organomegaly] Ext: [no gross muscle atrophy], [no edema], [no contractures] Neuro: [no focal neuro deficits] Psych: [Alert], [oriented], [appropriate affect] - Labs CBC & Chem 7: 08/31/19 06:30 08/31/19 06:30 Labs: Abnormal Lab Results - Last 24 Hours (Table) 08/31/19 08/31/19 Range/Units 06:30 06:30 WBC 16.2 H (3.8-10.6) k/uL Hgb 10.8 L (11.4-16.0) gm/dL Neutrophils # 12.1 H (1.3-7.7) k/uL Chloride 108 H (98-107) mmol/L Glucose 105 H (74-99) mg/dL Phosphorus 2.3 L (2.5-4.5) mg/dL AST 180 H (14-36) U/L ALT 133 H (4-34) U/L Alkaline Phosphatase 131 H (38-126) U/L Total Protein 6.2 L (6.3-8.2) g/dL Albumin 3.3 L (3.5-5.0) g/dL Microbiology - Last 24 Hours (Table) 08/27/19 20:30 Gram Stain - Final Sputum Sputum Culture - Final 08/27/19 22:01 Blood Culture - Preliminary Blood No Growth after 72 hours Assessment and Plan Assessment: Sepsis related to community-acquired pneumonia Herpes simplex Elevated liver enzymes Hypertension Dyslipidemia GERD Patient initially met sepsis criteria. Chest x-ray this morning shows stable le ft basilar opacity with new right-sided atelectasis. Blood culture negative at 72 hours. Sputum culture negative. Pro-calcitonin elevated 0.35. Coronavirus testing negative. Plans: Continue Rocephin and levofloxacin as per ID recommendations. Continue DuoNeb scheduled and as needed along with Symbicort and prednisone by mouth. O2 per NC to maintain O2 saturation greater than 92%. Plans: Continue course of acyclovir. AST 180, ALT 133, alkaline phosphatase 131. Liver ultrasound is unremarkable. Plans: Follow hepatitis panel. Follow lipid panel. BP 146/83. Plans: Continue lisinopril. Monitor vitals, adjust medications as necessary. Plans: Continue Lipitor by mouth. Follow lipid panel. Plans: Tums as needed. [Patient admitted for pneumonia and sepsis. Cultures negative. Currently on antibiotics. She is pending clinical improvement. Likely DC in 2-3 days.]
[2019-08-31] MEDS: ATORVASTATIN 20 MG TAB PO SCH (21:49)
[2019-08-31] MEDS: ASPIRIN 81 MG PO SCH (21:49)
[2019-09-01] MEDS: HEPARIN SODIUM,PORCINE 5,000 UNIT/ML 1 ML VIAL SQ SCH ×3 (00:12→15:33)
--- NOTE | 2019-09-01 02:27 | PN ---
PROGRESS NOTE DATE OF SERVICE: 08/31/2019 REASON FOR FOLLOWUP: Pneumonia. INTERVAL HISTORY: The patient is currently afebrile. The patient is breathing comfortably. She still has a cough with occasional blood-tinged sputum. No nausea, no vomiting. No abdominal pain, no diarrhea. PHYSICAL EXAMINATION: Blood pressure is 152/87 with pulse of 77, temperature 98. She is 92% on 2 L nasal cannula. General description is a middle-aged female up in the bed in no distress. RESPIRATORY SYSTEM: Unlabored breathing. Some coarse crackles at the left base. No wheeze. HEART: S1, S2. Regular rate and rhythm. ABDOMEN: Soft, no tenderness. LABS: Hemoglobin is 10.8, white count 16.2 with BUN of 7, creatinine 0.60. DIAGNOSTIC IMPRESSION AND PLAN: 1. Patient admitted to the hospital with pneumonia left lower lobe likely community- acquired and this patient's sputum has been negative so far. The patient's fever resolved. Currently on Rocephin and Levaquin to continue to finish therapy with oral antibiotics. 2. Patient with elevated liver enzymes. Ultrasound was negative. We will check hepatitis panel. Continue with supportive care. MMODL / IJN: [id number] /
[2019-09-01] MEDS: SODIUM CHLORIDE 0.9% 1,000 ML IV SCH ×2 (02:31→21:07)
[2019-09-01 03:54] LABS: Cholesterol 136 mg/dL (<200); HDL Cholesterol 35 mg/dL (40-60); LDL Cholesterol,Calculated 51 mg/dL (0-99); Triglycerides 248 mg/dL (<150)
[2019-09-01] MEDS: IPRATROPIUM-ALBUTEROL 3 ML NEB INHALATION SCH ×4 (07:16→20:37)
[2019-09-01] MEDS: SYMBICORT 160-4.5 MCG INHALER INHALATION SCH ×2 (07:16→20:37)
[2019-09-01] MEDS: PANTOPRAZOLE 40 MG TABLET PO SCH ×2 (08:32→17:12)
[2019-09-01] MEDS: LISINOPRIL 20 MG TAB PO SCH (08:32)
[2019-09-01] MEDS: predniSONE 20 MG TAB PO SCH (08:32)
[2019-09-01] MEDS: ACYCLOVIR 200 MG CAP PO SCH ×3 (08:33→21:58)
[2019-09-01] MEDS: LEVOFLOXACIN 750 MG TAB PO SCH (08:33)
[2019-09-01] MEDS: BUTALB/APAP/CAFF 50-325-40MG TAB PO PRN ×2 (08:43→15:42)
[2019-09-01] MEDS: methylPREDNISolone SOD SUCCI 125 MG/2 ML VIAL IV SCH ×2 (12:23→17:12)
--- NOTE | 2019-09-01 14:09 | P.PN ---
Subjective Progress Note Date: 09/01/19 Principal diagnosis: Left upper and lower lobe community acquired pneumonia The patient is seen today 08/30/2019 in follow-up in the regular medical floor. She is awake and alert in no acute distress. She is feeling a bit better today compared to yesterday. Less cough and congestion. No chills or night sweats. Less fatigued. Maintaining O2 saturations in the low 90s on 3 L/m per nasal cannula. Still having some spikes in temperature at 100.9 earlier this morning. Blood culture reveals no growth to date. Sputum culture pending. White count 16.4. Hemoglobin 11.3. Sodium 138. Potassium 4.1. Creatinine 0.59. AST 230. ALT 141. She remains on DuoNeb inhalations, Symbicort, prednisone, antibiotics in the form of ceftriaxone and Levaquin. The patient is seen today 08/31/2019 in follow-up on the regular medical floor. She is currently resting quite comfortably in bed. Still requiring 3 L oxygen by nasal cannula to maintain O2 saturations in the 90s. Sputum culture reveals no growth. Blood culture reveals no growth. White count 16.2. Hemoglobin 10.8 . Sodium 141. Potassium 3.7. Creatinine 0.60. Glucose 105. AST 180, ALT 133. Chest x-ray reveals linear left basilar opacity and a new small right basilar opacity. Most likely atelectasis. Liver ultrasound revealed hepatic echotexture of the liver grossly unremarkable despite known transaminitis. No cholelithiasis. She is currently on Levaquin and ceftriaxone. Remains on oral steroids and bronchodilators. On 09/01/2019 patient seen in follow-up on the general medical floor, she is a wake and alert, in no acute distress, she is on 2 L of oxygen, her pulse ox is 92%, she's been afebrile in the last 24 hours, no chills, no worsening dyspnea, hemodynamically stable, no altered mentation. He is on antibiotics for community-acquired pneumonia, sputum blood cultures have shown no growth. Today's labs have been reviewed showing white blood cell count of 16.2, hemoglobin of 10.8, sodium 141, potassium is 3.7, chloride is 108, the rest of electrolytes and renal profile were within normal limits. Acetone was done on 08/27/2019 and came back elevated to 0.35. History of chest x-ray shows atelectasis at the left base, and right base. Objective - Vital Signs Vital signs: Vital Signs Temp 98.6 F 09/01/19 07:38 Pulse 84 09/01/19 11:09 Resp 16 09/01/19 08:00 BP 147/86 09/01/19 07:38 Pulse Ox 94 L 09/01/19 12:24 Intake & Output 08/31/19 09/01/19 09/01/19 18:59 06:59 18:59 Intake Total 800 Balance 800 Intake: IV 800 Sodium Chloride 0.9% 1, 800 000 ml @ 100 mls/hr IV . Q10H [facility] Rx#:[id number] Other: Voiding Method Toilet - Exam GENERAL EXAM: Alert, very pleasant, on 1 L of oxygen, with pulse ox of 94% comfortable in no apparent distress. HEAD: Normocephalic/atraumatic. EYES: Normal reaction of pupils, equal size. Conjunctiva pink, sclera white. NOSE: Clear with pink turbinates. THROAT: No erythema or exudates. NECK: No masses, no JVD, no thyroid enlargement, no adenopathy. CHEST: No chest wall deformity. Symmetrical expansion. LUNGS: Equal air entry with no crackles, wheeze, rhonchi or dullness. CVS: Regular rate and rhythm, normal S1 and S2, no gallops, no murmurs, no rubs ABDOMEN: Soft, nontender. No hepatosplenomegaly, normal bowel sounds, no guarding or rigidity. EXTREMITIES: No clubbing, no edema, no cyanosis, 2+ pulses and upper and lower extremities. MUSCULOSKELETAL: Muscle strength and tone normal. SPINE: No scoliosis or deformity SKIN: No rashes CENTRAL NERVOUS SYSTEM: Alert and oriented -3. No focal deficits, tone is normal in all 4 extremities. PSYCHIATRIC: Alert and oriented -3. Appropriate affect. Intact judgment and insight. - Labs CBC & Chem 7: 08/31/19 06:30 08/31/19 06:30 Labs: Abnormal Lab Results - Last 24 Hours (Table) 08/31/19 Range/Units 06:30 Triglycerides 248 H (<150) mg/dL HDL Cholesterol 35 L (40-60) mg/dL Microbiology - Last 24 Hours (Table) 08/27/19 22:01 Blood Culture - Preliminary Blood No Growth after 96 hours Assessment and Plan Plan: Assessment: #1. Acute left upper and lower lobe community-acquired pneumonia, community- acquired, COVID 19 negative #2. GERD/reflux #3. Hypertension #4. Hyperlipidemia #5. ALLERGIC rhinitis Plan: Continue current antibiotic coverage, breathing is improving, vital signs are stable, no acute events overnight, no fever or chills, follow-up chest x-ray in the morning. We'll continue to follow I performed a history & physical examination of the patient and discussed their management with my nurse practitioner, Ale Orona. I reviewed the nurse practitioner's note and agree with the documented findings and plan of care. Lung sounds are positive for diminished breath sounds. The findings and the impression was discussed with the patient. I attest to the documentation by the nurse practitioner. Time with Patient: Less than 30
[2019-09-01 15:27] LABS: Hepatitis A Antibody IgM Non-Reactive (Non-Reactive); Hepatitis B Core IgM Non-Reactive (Non-Reactive); Hepatitis B Surface Antigen Non-Reactive (Non-Reactive); Hepatitis C IgG Antibody Non-Reactive (Non-Reactive)
--- NOTE | 2019-09-01 18:09 | P.PN ---
Subjective Progress Note Date: 09/01/19 Principal diagnosis: Pneumonia Patient was seen and examined. No acute events overnight. Patient reports considerable improvement in her breathing since admission. She is currently on 1 L nasal cannula attempting to wean down to room air. She denies any chest pain or palpitations. No nausea or vomiting. No fever or chills. Oral lip lesions seem to be improving with acyclovir. Objective - Vital Signs Vital signs: Vital Signs Temp 98.6 F 09/01/19 15:03 Pulse 78 09/01/19 16:50 Resp 16 09/01/19 15:56 BP 153/90 09/01/19 15:03 Pulse Ox 93 L 09/01/19 15:03 Intake & Output 08/31/19 09/01/19 09/01/19 18:59 06:59 18:59 Intake Total 800 Balance 800 Intake: IV 800 Sodium Chloride 0.9% 1, 800 000 ml @ 100 mls/hr IV . Q10H [facility] Rx#:[id number] Other: Voiding Method Toilet # Voids 2 - Exam General: [non toxic], [no distress], [appears at stated age] Derm: [warm], [dry] Head: [atraumatic], [normocephalic], [symmetric] Eyes: [EOMI], [no lid lag], [anicteric sclera] Mouth: [no lip lesion], [mucus membranes moist] Cardiovascular: [S1S2 reg], [no murmur], [positive DP pulse bilateral], Lungs: [Decreased breath sounds bilateral], [scattered rhonchi bilaterally] , [ no accessory muscle use] Abdominal: [soft], [ nontender to palpation], [no guarding], [no appreciable organomegaly] Ext: [no gross muscle atrophy], [no edema], [no contractures] Neuro: [no focal neuro deficits] Psych: [Alert], [oriented], [appropriate affect] - Labs CBC & Chem 7: 08/31/19 06:30 08/31/19 06:30 Labs: Abnormal Lab Results - Last 24 Hours (Table) 08/31/19 Range/Units 06:30 Triglycerides 248 H (<150) mg/dL HDL Cholesterol 35 L (40-60) mg/dL Microbiology - Last 24 Hours (Table) 08/27/19 22:01 Blood Culture - Preliminary Blood No Growth after 96 hours Assessment and Plan Assessment: Sepsis related to community-acquired pneumonia Herpes simplex Elevated liver enzymes Hypertension Dyslipidemia GERD Patient initially met sepsis criteria. Chest x-ray this morning shows stable left basilar opacity with new right-sided atelectasis. Blood culture negative at 96 hours. Sputum culture negative. Pro-calcitonin elevated 0.35. Coronavirus testing negative. Plans: Continue Rocephin and levofloxacin as per ID recommendations. Continue DuoNeb scheduled and as needed along with Symbicort and prednisone by mouth. O2 per NC to maintain O2 saturation greater than 92%. Plans: Continue course of acyclovir. AST 180, ALT 133, alkaline phosphatase 131. Liver ultrasound is unremarkable. Hepatitis panel negative. Lipid panel shows triglyceride of 48 and HDL of 35. Plans: Possibly related to acyclovir? Repeat CMP tomorrow morning. BP 153/90. Plans: Continue lisinopril. Monitor vitals, adjust medications as necessary. Plans: Continue Lipitor by mouth. Follow lipid panel. Plans: Tums as needed. [Patient admitted for pneumonia and sepsis. Cultures negative. Currently on antibiotics. She is pending clinical improvement. Likely DC in 1-2 days.]
[2019-09-01] MEDS: ASPIRIN 81 MG PO SCH (21:07)
[2019-09-01] MEDS: ATORVASTATIN 20 MG TAB PO SCH (21:07)
--- NOTE | 2019-09-01 23:23 | PN ---
PROGRESS NOTE DATE OF SERVICE: 09/01/2019 REASON FOR FOLLOWUP: Pneumonia. INTERVAL HISTORY: The patient is currently afebrile. The patient is breathing more comfortably. The patient denies having any chest pain. Cough has decreased in intensity. No nausea, no vomiting. No abdominal pain or diarrhea. PHYSICAL EXAMINATION: Blood pressure 153/90 with a pulse of 88, temperature 98.6. She is 93% on 2 L nasal cannula. General description is an elderly female up in the bed in no distress. RESPIRATORY SYSTEM: Unlabored breathing with decreased breath sounds at the base. No wheeze. HEART: S1, S2. Regular rate and rhythm. ABDOMEN: Soft. No tenderness. LABS: Hemoglobin is 10.8, white count 16.2, BUN of 7, creatinine 0.60. Hepatitis serology has been negative. DIAGNOSTIC IMPRESSION AND PLAN: 1. Patient admitted to hospital with sepsis. Source is likely pneumonia. So far sputum has been negative for any resistant pathogen. Patient is covered with Rocephin and Levaquin; to continue and monitor her clinical course closely. 2. Elevated liver enzymes. So far serological workup is negative and the liver enzymes are showing a downward trend. Continue to monitor closely. Continue with supportive care. MMODL / IJN: [id number] /
[2019-09-02] MEDS: HEPARIN SODIUM,PORCINE 5,000 UNIT/ML 1 ML VIAL SQ SCH ×3 (01:29→17:33)
[2019-09-02] MEDS: methylPREDNISolone SOD SUCCI 125 MG/2 ML VIAL IV SCH ×4 (01:29→17:32)
[2019-09-02] MEDS: SODIUM CHLORIDE 0.9% 1,000 ML IV SCH ×2 (05:59→07:51)
[2019-09-02] MEDS: IPRATROPIUM-ALBUTEROL 3 ML NEB INHALATION SCH ×4 (07:15→19:23)
[2019-09-02] MEDS: SYMBICORT 160-4.5 MCG INHALER INHALATION SCH ×2 (07:15→19:23)
[2019-09-02] MEDS: LISINOPRIL 20 MG TAB PO SCH (07:49)
[2019-09-02] MEDS: LEVOFLOXACIN 750 MG TAB PO SCH (07:50)
[2019-09-02] MEDS: PANTOPRAZOLE 40 MG TABLET PO SCH ×2 (07:50→17:33)
[2019-09-02] MEDS: predniSONE 20 MG TAB PO SCH (07:50)
[2019-09-02] MEDS: ACYCLOVIR 200 MG CAP PO SCH ×3 (07:51→21:14)
[2019-09-02] MEDS: BUTALB/APAP/CAFF 50-325-40MG TAB PO PRN ×2 (07:53→17:32)
[2019-09-02 08:04] LABS: Basophils # (A) 0.1 k/uL (0-0.2); Basophils % (A) 1 %; Eosinophils % (A) 0 %; HCT 34.5 % (34.0-46.0); HGB 10.7 gm/dL (11.4-16.0); Lymphocytes # (A) 2.1 k/uL (1.0-4.8); Lymphocytes % (A) 13 %; MCH 27.3 pg (25.0-35.0); MCHC 30.9 g/dL (31.0-37.0); MCV 88.4 fL (80.0-100.0); Mean Platelet Volume 7.8; Monocytes # (A) 0.5 k/uL (0-1.0); Monocytes % (A) 3 %; Neutrophils # (A) 13.4 k/uL (1.3-7.7); Neutrophils % (A) 82 %; Platelet Count 434 k/uL (150-450); RDW 13.1 % (11.5-15.5); WBC 16.4 k/uL (3.8-10.6)
[2019-09-02 08:20] LABS: ALT 114 U/L (4-34); AST 112 U/L (14-36); African American GFR (CKD) >90 (>60 ml/min/1.73 sqM); Albumin 3.3 g/dL (3.5-5.0); Alkaline Phosphatase 112 U/L (38-126); Anion Gap 11 mmol/L; Blood Urea Nitrogen 11 mg/dL (7-17); Carbon Dioxide 24 mmol/L (22-30); Chloride 106 mmol/L (98-107); Glucose 122 mg/dL (74-99); Non-African American GFR(CKD) >90 (>60 ml/min/1.73 sqM); Potassium 5.4 mmol/L (3.5-5.1); Sodium 141 mmol/L (137-145); Total Bilirubin 0.2 mg/dL (0.2-1.3); Total Protein 6.1 g/dL (6.3-8.2)
--- NOTE | 2019-09-02 13:12 | P.PN ---
Subjective Progress Note Date: 09/02/19 Principal diagnosis: Left upper and lower lobe community acquired pneumonia The patient is seen today 08/30/2019 in follow-up in the regular medical floor. She is awake and alert in no acute distress. She is feeling a bit better today compared to yesterday. Less cough and congestion. No chills or night sweats. Less fatigued. Maintaining O2 saturations in the low 90s on 3 L/m per nasal cannula. Still having some spikes in temperature at 100.9 earlier this morning. Blood culture reveals no growth to date. Sputum culture pending. White count 16.4. Hemoglobin 11.3. Sodium 138. Potassium 4.1. Creatinine 0.59. AST 230. ALT 141. She remains on DuoNeb inhalations, Symbicort, prednisone, antibiotics in the form of ceftriaxone and Levaquin. The patient is seen today 08/31/2019 in follow-up on the regular medical floor. She is currently resting quite comfortably in bed. Still requiring 3 L oxygen by nasal cannula to maintain O2 saturations in the 90s. Sputum culture reveals no growth. Blood culture reveals no growth. White count 16.2. Hemoglobin 10.8 . Sodium 141. Potassium 3.7. Creatinine 0.60. Glucose 105. AST 180, ALT 133. Chest x-ray reveals linear left basilar opacity and a new small right basilar opacity. Most likely atelectasis. Liver ultrasound revealed hepatic echotexture of the liver grossly unremarkable despite known transaminitis. No cholelithiasis. She is currently on Levaquin and ceftriaxone. Remains on oral steroids and bronchodilators. On 09/01/2019 patient seen in follow-up on the general medical floor, she is a wake and alert, in no acute distress, she is on 2 L of oxygen, her pulse ox is 92%, she's been afebrile in the last 24 hours, no chills, no worsening dyspnea, hemodynamically stable, no altered mentation. He is on antibiotics for community-acquired pneumonia, sputum blood cultures have shown no growth. Today's labs have been reviewed showing white blood cell count of 16.2, hemoglobin of 10.8, sodium 141, potassium is 3.7, chloride is 108, the rest of electrolytes and renal profile were within normal limits. Acetone was done on 08/27/2019 and came back elevated to 0.35. History of chest x-ray shows atelectasis at the left base, and right base. On 09/02/2019 patient seen in follow-up on general medical floor. She is awake and alert, in no acute distress, she is on room air, her lung sounds are clear on today's exam. This had no fever or chills, hemodynamically patient has been stable. He is in sinus mechanism with a rate of 67 BPM. Breathing appears to be comfortable, antibiotic coverage continues with Rocephin and Levaquin. So far sputum and blood cultures have shown no growth. Today's labs have been reviewed, showing stable white count of 16.4, hemoglobin of 10.7, sodium is 141, potassium is 5.4, with a 3-lead choice and renal profile were within normal limits. Breathing is improving, no complaints of chest pain or palpitations, no nausea or vomiting Objective - Vital Signs Vital signs: Vital Signs Temp 98.5 F 09/02/19 07:43 Pulse 80 09/02/19 11:10 Resp 18 09/02/19 07:43 BP 160/82 09/02/19 07:43 Pulse Ox 90 L 09/02/19 07:43 Intake & Output 09/01/19 09/02/19 09/02/19 18:59 06:59 18:59 Intake Total 540 250 Output Total 800 Balance 540 -550 Intake: Oral 540 250 Output: Urine 800 Other: Voiding Method Toilet Toilet # Voids 2 2 - Exam GENERAL EXAM: Alert, very pleasant, on room air, with a pulse ox of 90% comfortable in no apparent distress. HEAD: Normocephalic/atraumatic. EYES: Normal reaction of pupils, equal size. Conjunctiva pink, sclera white. NOSE: Clear with pink turbinates. THROAT: No erythema or exudates. NECK: No masses, no JVD, no thyroid enlargement, no adenopathy. CHEST: No chest wall deformity. Symmetrical expansion. LUNGS: Equal air entry with no crackles, wheeze, rhonchi or dullness. CVS: Regular rate and rhythm, normal S1 and S2, no gallops, no murmurs, no rubs ABDOMEN: Soft, nontender. No hepatosplenomegaly, normal bowel sounds, no guarding or rigidity. EXTREMITIES: No clubbing, no edema, no cyanosis, 2+ pulses and upper and lower extremities. MUSCULOSKELETAL: Muscle strength and tone normal. SPINE: No scoliosis or deformity SKIN: No rashes CENTRAL NERVOUS SYSTEM: Alert and oriented -3. No focal deficits, tone is normal in all 4 extremities. PSYCHIATRIC: Alert and oriented -3. Appropriate affect. Intact judgment and insight. - Labs CBC & Chem 7: 09/02/19 07:10 09/02/19 07:10 Labs: Abnormal Lab Results - Last 24 Hours (Table) 09/02/19 09/02/19 Range/Units 07:10 07:10 WBC 16.4 H (3.8-10.6) k/uL Hgb 10.7 L (11.4-16.0) gm/dL MCHC 30.9 L (31.0-37.0) g/dL Neutrophils # 13.4 H (1.3-7.7) k/uL Potassium 5.4 H (3.5-5.1) mmol/L Glucose 122 H (74-99) mg/dL AST 112 H (14-36) U/L ALT 114 H (4-34) U/L Total Protein 6.1 L (6.3-8.2) g/dL Albumin 3.3 L (3.5-5.0) g/dL Microbiology - Last 24 Hours (Table) 08/27/19 22:01 Blood Culture - Preliminary Blood No Growth after 120 hours Assessment and Plan Plan: Assessment: #1. Acute left upper and lower lobe community-acquired pneumonia, community- acquired, COVID 19 negative #2. GERD/reflux #3. Hypertension #4. Hyperlipidemia #5. ALLERGIC rhinitis Plan: Obtain follow-up chest x-ray today, patient is improving, she is on room air, no cough or congestion, no hemoptysis, no chest pain, increase activity as tolerated, so far culture data remains negative to date. Patient denies any fever or chills, no worsening dyspnea. May be considered for discharge home in the next 24 hours if chest x-ray also continues to improve I performed a history & physical examination of the patient and discussed their management with my nurse practitioner, Ale Orona. I reviewed the nurse practitioner's note and agree with the documented findings and plan of care. Lung sounds are positive for diminished breath sounds. The findings and the impression was discussed with the patient. I attest to the documentation by the nurse practitioner. Time with Patient: Less than 30
--- NOTE | 2019-09-02 14:08 | XR ---
EXAMINATION TYPE: XR chest 2V DATE OF EXAM: 09/02/2019 COMPARISON: 08/31/2019 INDICATION: Follow-up pneumonia TECHNIQUE: Frontal and lateral views of the chest are obtained. FINDINGS: The heart size is normal. The pulmonary vasculature is normal. There is mild improving infiltrate within the left lower lobe. There is better visualization of the l eft diaphragm. Posterior right pleural effusion is evident.. IMPRESSION: 1. Posterior right pleural effusion. 2. Improving left lower lobe infiltrate. Mild residual remains.
--- NOTE | 2019-09-02 14:41 | PN ---
PROGRESS NOTE DATE OF SERVICE: 09/02/2019 REASON FOR FOLLOWUP: Pneumonia. INTERVAL HISTORY: The patient is currently afebrile. The patient is feeling better. Breathing comfortably. The patient coughing decreased intensity less productive, no hemoptysis, no nausea, no vomiting. No abdominal pain, no diarrhea. PHYSICAL EXAMINATION: Blood pressure is 160/82 with a pulse of 80, temperature 98.5. She is 90% on room air. General description is a middle-aged female, up in the bed in no distress. RESPIRATORY SYSTEM: Unlabored breathing, decreased breath sounds at the base. No wheeze. HEART: S1, S2. Regular rate and rhythm. ABDOMEN: Soft, no tenderness. LABS: Hemoglobin is 10.7, white count 16.4, BUN of 11, creatinine 0.63. DIAGNOSTIC IMPRESSION AND PLAN: 1. Patient with pneumonia, likely community-acquired sputum has been resistant pathogen. The patient is on , Levaquin, to finish therapy with oral Ceftin. 2. Leukocytosis, more likely steroid effect has been overall showing clinical improvement and will be monitored closely. MMODL / IJN: [id number] /
--- NOTE | 2019-09-02 18:55 | P.PN ---
Subjective Progress Note Date: 09/02/19 Principal diagnosis: Pneumonia Patient was seen and examined. No acute events overnight. Patient reports considerable improvement in her breathing since admission. She is currently on room air satting low 90s. She denies any chest pain or palpitations. No nausea or vomiting. No fever or chills. Oral lip lesions seem to be improving with acyclovir. Objective - Vital Signs Vital signs: Vital Signs Temp 98.5 F 09/02/19 14:42 Pulse 82 09/02/19 15:27 Resp 16 09/02/19 15:27 BP 150/76 09/02/19 14:42 Pulse Ox 91 L 09/02/19 14:42 Intake & Output 09/01/19 09/02/19 09/02/19 18:59 06:59 18:59 Intake Total 540 250 540 Output Total 800 Balance 540 -550 540 Intake: Oral 540 250 540 Output: Urine 800 Other: Voiding Method Toilet Toilet # Voids 2 2 4 - Exam General: [non toxic], [no distress], [appears at stated age] Derm: [warm], [dry] Head: [atraumatic], [normocephalic], [symmetric] Eyes: [EOMI], [no lid lag], [anicteric sclera] Mouth: [no lip lesion], [mucus membranes moist] Cardiovascular: [S1S2 reg], [no murmur], [positive DP pulse bilateral], Lungs: [Decreased breath sounds bilateral], [scattered rhonchi bilaterally] , [no accessory muscle use] Abdominal: [soft], [ nontender to palpation], [no guarding], [no appreciable organomegaly] Ext: [no gross muscle atrophy], [no edema], [no contractures] Neuro: [no focal neuro deficits] Psych: [Alert], [oriented], [appropriate affect] - Labs CBC & Chem 7: 09/02/19 07:10 09/02/19 07:10 Labs: Abnormal Lab Results - Last 24 Hours (Table) 09/02/19 09/02/19 Range/Units 07:10 07:10 WBC 16.4 H (3.8-10.6) k/uL Hgb 10.7 L (11.4-16.0) gm/dL MCHC 30.9 L (31.0-37.0) g/dL Neutrophils # 13.4 H (1.3-7.7) k/uL Potassium 5.4 H (3.5-5.1) mmol/L Glucose 122 H (74-99) mg/dL AST 112 H (14-36) U/L ALT 114 H (4-34) U/L Total Protein 6.1 L (6.3-8.2) g/dL Albumin 3.3 L (3.5-5.0) g/dL Microbiology - Last 24 Hours (Table) 08/27/19 22:01 Blood Culture - Preliminary Blood No Growth after 120 hours Assessment and Plan Assessment: Sepsis related to community-acquired pneumonia Hyperkalemia Herpes simplex Elevated liver enzymes Hypertension Dyslipidemia GERD Patient initially met sepsis criteria. Chest x-ray this morning shows stable left basilar opacity with new right-sided atelectasis. Blood culture negative at 120 hours. Sputum culture negative. Pro-calcitonin elevated 0.35. Coronavirus testing negative. Plans: Continue Rocephin and levofloxacin as per ID recommendations. Continue DuoNeb scheduled and as needed along with Symbicort and prednisone by mouth. O2 per NC to maintain O2 saturation greater than 92%. Potassium 5.4. Plans: Recheck at 7 PM. Plans: Continue course of acyclovir. AST 112, ALT 114, alkaline phosphatase within normal limits. Liver ultrasound is unremarkable. Hepatitis panel negative. Lipid panel shows triglyceride of 48 and HDL of 35. Plans: Possibly related to acyclovir? Repeat CMP tomorrow morning. BP 150/76. Plans: Continue lisinopril. Monitor vitals, adjust medications as necessary. Plans: Continue Lipitor by mouth. Plans: Tums as needed. [Patient admitted for pneumonia and sepsis. Cultures negative. Currently on antibiotics. She is pending clinical improvement. Currently on room air but satting low 90s. 6 minute walk test tomorrow. Anticipate DC in the next 1-2 days. Pulmonology on board.]
[2019-09-02] MEDS: ATORVASTATIN 20 MG TAB PO SCH (21:14)
[2019-09-02] MEDS: ASPIRIN 81 MG PO SCH (21:14)
[2019-09-03] MEDS: methylPREDNISolone SOD SUCCI 125 MG/2 ML VIAL IV SCH ×2 (00:55→05:38)
[2019-09-03] MEDS: BUTALB/APAP/CAFF 50-325-40MG TAB PO PRN ×4 (00:55→20:42)
[2019-09-03] MEDS: HEPARIN SODIUM,PORCINE 5,000 UNIT/ML 1 ML VIAL SQ SCH ×3 (00:56→15:59)
[2019-09-03] MEDS: BENZONATATE 100 MG CAP PO PRN ×3 (03:06→17:54)
[2019-09-03] MEDS: IPRATROPIUM-ALBUTEROL 3 ML NEB INHALATION SCH ×4 (07:30→20:13)
[2019-09-03] MEDS: SYMBICORT 160-4.5 MCG INHALER INHALATION SCH ×2 (07:30→20:14)
[2019-09-03] MEDS: ACYCLOVIR 200 MG CAP PO SCH ×3 (09:16→20:43)
[2019-09-03] MEDS: LEVOFLOXACIN 750 MG TAB PO SCH (09:16)
[2019-09-03] MEDS: predniSONE 20 MG TAB PO SCH (09:16)
[2019-09-03] MEDS: PANTOPRAZOLE 40 MG TABLET PO SCH ×2 (09:16→17:54)
[2019-09-03] MEDS: LISINOPRIL 20 MG TAB PO SCH (09:16)
[2019-09-03 09:29] LABS: HCT 36.3 % (34.0-46.0); HGB 11.4 gm/dL (11.4-16.0); MCH 28.7 pg (25.0-35.0); MCHC 31.5 g/dL (31.0-37.0); MCV 91.1 fL (80.0-100.0); Mean Platelet Volume 7.5; Platelet Count 537 k/uL (150-450); RBC 3.99 m/uL (3.80-5.40); RDW 13.5 % (11.5-15.5); WBC 22.1 k/uL (3.8-10.6)
[2019-09-03 09:53] LABS: ALT 155 U/L (4-34); AST 168 U/L (14-36); African American GFR (CKD) >90 (>60 ml/min/1.73 sqM); Albumin 3.6 g/dL (3.5-5.0); Alkaline Phosphatase 116 U/L (38-126); Anion Gap 8 mmol/L; Blood Urea Nitrogen 16 mg/dL (7-17); Calcium 9.8 mg/dL (8.4-10.2); Carbon Dioxide 25 mmol/L (22-30); Chloride 106 mmol/L (98-107); Glucose 152 mg/dL (74-99); Non-African American GFR(CKD) >90 (>60 ml/min/1.73 sqM); Sodium 139 mmol/L (137-145); Total Bilirubin 0.2 mg/dL (0.2-1.3); Total Protein 6.4 g/dL (6.3-8.2)
[2019-09-03] MEDS ORDERED: predniSONE 20 MG TAB PO SCH (10:00)
[2019-09-03] MEDS ORDERED: predniSONE 20 MG TAB PO ONE (10:15)
[2019-09-03 10:36] LABS: Band Neutrophils % 5 %; Basophils # (M) 0.22 k/uL (0-0.2); Lymphocytes # (M) 2.65 k/uL (1.0-4.8); Metamyelocytes # (M) 0.66 k/uL (0); Metamyelocytes % 3 %; Monocytes # (M) 0.88 k/uL (0-1.0); Myelocytes # (M) 0.44 k/uL (0); Myelocytes % 2 %; Neutrophils % (M) 75 %; Nucleated Red Blood Cells 0 /100 WBC (0-0); Total Cells Counted 200
[2019-09-03 10:37] LABS: Poikilocytosis (M) Present; Toxic Granulation Present
--- NOTE | 2019-09-03 11:29 | P.PN ---
Subjective Progress Note Date: 09/03/19 Principal diagnosis: Left upper and lower lobe community-acquired pneumonia The patient is seen today 09/03/2019 in follow-up on the regular medical floor. She is awake and alert in no acute distress. She is maintaining good O2 saturations in the 90s on room air. With exercise she saturated at 89%. No need for home oxygen at this point. Blood cultures revealed no growth. Sputum culture revealed no growth. White count 22.1. Hemoglobin 11.4. Sodium 139. Potassium 5.0. Creatinine 0.69. AST 168. ALT 155. She is on Tessalon Perles. Remains on bronchodilators and steroid. Antibiotics in the form of Levaquin. Objective - Vital Signs Vital signs: Vital Signs Temp 98.1 F 09/03/19 07:00 Pulse 76 09/03/19 11:18 Resp 16 09/03/19 07:00 BP 178/93 09/03/19 07:00 Pulse Ox 92 L 09/03/19 10:58 Intake & Output 09/02/19 09/03/19 09/03/19 18:59 06:59 18:59 Intake Total 540 Output Total 800 Balance 540 -800 Intake: Oral 540 Output: Urine 800 Other: Voiding Method Toilet # Voids 4 1 - Exam GENERAL EXAM: Alert, very pleasant 63-year-old female patient, on room air, comfortable in no apparent distress. HEAD: Normocephalic. EYES: Normal reaction of pupils, equal size. NOSE: Clear with pink turbinates. THROAT: No erythema or exudates. NECK: No masses, no JVD. CHEST: No chest wall deformity. LUNGS: Equal air entry with scattered rhonchi throughout the left lung, faint crackles in the bases. CVS: S1 and S2 normal with no audible murmur, regular rhythm. ABDOMEN: No hepatosplenomegaly, normal bowel sounds, no guarding or rigidity. SPINE: No scoliosis or deformity SKIN: No rashes CENTRAL NERVOUS SYSTEM: No focal deficits, tone is normal in all 4 extremities. EXTREMITIES: There is no peripheral edema. No clubbing, no cyanosis. Peripheral pulses are intact. - Labs CBC & Chem 7: 09/03/19 08:55 09/03/19 08:55 Labs: Abnormal Lab Results - Last 24 Hours (Table) 09/03/19 09/03/19 Range/Units 08:55 08:55 WBC 22.1 H (3.8-10.6) k/uL Plt Count 537 H (150-450) k/uL Neutrophils # (Manual) 17.60 H (1.3-7.7) k/uL Basophils # (Manual) 0.22 H (0-0.2) k/uL Metamyelocytes # (Man) 0.66 H (0) k/uL Myelocytes # (Manual) 0.44 H (0) k/uL Glucose 152 H (74-99) mg/dL AST 168 H (14-36) U/L ALT 155 H (4-34) U/L Microbiology - Last 24 Hours (Table) 08/27/19 22:01 Blood Culture - Final Blood No Growth after 144 hours Assessment and Plan Assessment: 1 Acute left upper and lower lobe pneumonia, community-acquired, CoVID 19 negative 2 Gastroesophageal reflux disease 3 Hypertension 4 Hyperlipidemia 5 ALLERGIC rhinitis Plan: The patient was seen and evaluated by Dr. Rose Currently stable from the pulmonary standpoint Does not require home oxygen She's been converted to oral prednisone. Possible discharge later today or in the a.m. We'll continue to follow I, the cosigning physician, performed a history & physical examination of the patient. Lungs sounds with scattered rhonchi throughout the left lung, crackles in the posterior bases. Maintaining good O2 saturations in the 90s on room air. I discussed the assessment and plan of care with my nurse practitioner, Annie Knox. I attest to the above note as dictated by her.
--- NOTE | 2019-09-03 11:49 | P.PN ---
Subjective Progress Note Date: 09/03/19 Principal diagnosis: Pneumonia Patient was seen and examined. No acute events overnight. Patient reports considerable improvement in her breathing since admission. Patient states that her weakness is considerably improved. She denies any chest pain, shortness breath or palpitations. No nausea or vomiting. No fever or chills. Patient states that she is concerned about her pneumonia and her ability to ambulate at home and would like to be discharged tomorrow. Objective - Vital Signs Vital signs: Vital Signs Temp 98.1 F 09/03/19 07:00 Pulse 76 09/03/19 11:18 Resp 16 09/03/19 07:00 BP 178/93 09/03/19 07:00 Pulse Ox 92 L 09/03/19 10:58 Intake & Output 09/02/19 09/03/19 09/03/19 18:59 06:59 18:59 Intake Total 540 Output Total 800 Balance 540 -800 Intake: Oral 540 Output: Urine 800 Other: Voiding Method Toilet # Voids 4 1 - Exam General: [non toxic], [no distress], [appears at stated age] Derm: [warm], [dry] Head: [atraumatic], [normocephalic], [symmetric] Eyes: [EOMI], [no lid lag], [anicteric sclera] Mouth: [no lip lesion], [mucus membranes moist] Cardiovascular: [S1S2 reg], [no murmur], [positive DP pulse bilateral], Lungs: [Decreased breath sounds bilateral], [scattered rhonchi bilaterally, improved] , [no accessory muscle use] Abdominal: [soft], [ nontender to palpation], [no guarding], [no appreciable organomegaly] Ext: [no gross muscle atrophy], [no edema], [no contractures] Neuro: [no focal neuro deficits] Psych: [Alert], [oriented], [appropriate affect] - Labs CBC & Chem 7: 09/03/19 08:55 09/03/19 08:55 Labs: Abnormal Lab Results - Last 24 Hours (Table) 09/03/19 09/03/19 Range/Units 08:55 08:55 WBC 22.1 H (3.8-10.6) k/uL Plt Count 537 H (150-450) k/uL Neutrophils # (Manual) 17.60 H (1.3-7.7) k/uL Basophils # (Manual) 0.22 H (0-0.2) k/uL Metamyelocytes # (Man) 0.66 H (0) k/uL Myelocytes # (Manual) 0.44 H (0) k/uL Glucose 152 H (74-99) mg/dL AST 168 H (14-36) U/L ALT 155 H (4-34) U/L Microbiology - Last 24 Hours (Table) 08/27/19 22:01 Blood Culture - Final Blood No Growth after 144 hours Assessment and Plan Assessment: Sepsis related to community-acquired pneumonia Herpes simplex Elevated liver enzymes Hypertension Dyslipidemia GERD Patient initially met sepsis criteria which has resolved no. Chest x-ray this morning shows improving left basilar opacity with new right-sided atelectasis. Blood culture negative at 144 hours. Sputum culture negative. Pro-calcitonin elevated 0.35. Coronavirus testing negative. Plans: Continue Rocephin and levofloxacin as per ID recommendations. Continue DuoNeb scheduled and as needed along with Symbicort and prednisone by mouth. O2 per NC to maintain O2 sa turation greater than 92%. Plans: Continue course of acyclovir. AST 168, ALT 155, alkaline phosphatase within normal limits. Liver ultrasound is unremarkable. Hepatitis panel negative. Lipid panel shows triglyceride of 48 and HDL of 35. Plans: Possibly related to acyclovir? Repeat CMP tomorrow morning. BP 178/93 prior to morning medications. Plans: Continue lisinopril. Monitor vitals, adjust medications as necessary. Plans: Continue Lipitor by mouth. Plans: Tums as needed. [Patient admitted for pneumonia and sepsis. Cultures negative. Currently on antibiotics. She is pending clinical improvement. Currently on room air but satting low 90s. Patient encouraged to increase ambulation. Will repeat 6 minute walk test tomorrow. Anticipate DC tomorrow.]
--- NOTE | 2019-09-03 16:34 | PN ---
PROGRESS NOTE DATE OF SERVICE: 09/03/2019 REASON FOR FOLLOWUP: Pneumonia. INTERVAL HISTORY: The patient is currently afebrile. The patient is breathing more comfortably. The patient denies having any chest pain. Occasional cough. No nausea, no vomiting. No abdominal pain or diarrhea. PHYSICAL EXAMINATION: Blood pressure 180/97 with a pulse of 86, temperature 98. She is 92% on room air. General description is a middle-aged female up in the bed in no distress. RESPIRATORY SYSTEM: Unlabored breathing with decreased breath sounds at the base. No wheeze. HEART: S1, S2. Regular rate and rhythm. ABDOMEN: Soft. No tenderness. LABS: White count is up to 22,000. DIAGNOSTIC IMPRESSION AND PLAN: 1. Patient with pneumonia, likely community-acquired. Sputum has been negative. Blood culture negative as well. Clinically responded to Rocephin and Levaquin. Finish therapy with oral Ceftin. 2. Patient with leukocytosis, more likely steroid-related. Monitor clinical course closely. MMODL / IJN: [id number] /
[2019-09-03] MEDS: ATORVASTATIN 20 MG TAB PO SCH (20:42)
[2019-09-03] MEDS: ASPIRIN 81 MG PO SCH (20:43)
[2019-09-04] MEDS: BENZONATATE 100 MG CAP PO PRN (01:34)
[2019-09-04] MEDS: HEPARIN SODIUM,PORCINE 5,000 UNIT/ML 1 ML VIAL SQ SCH ×2 (01:34→08:27)
[2019-09-04 07:55] VITALS: BP 149/84; RESP 15; TEMP 97.9
[2019-09-04] MEDS: IPRATROPIUM-ALBUTEROL 3 ML NEB INHALATION SCH ×3 (08:26→15:29)
[2019-09-04] MEDS: SYMBICORT 160-4.5 MCG INHALER INHALATION SCH (08:26)
[2019-09-04] MEDS: LISINOPRIL 20 MG TAB PO SCH (08:27)
[2019-09-04] MEDS: LEVOFLOXACIN 750 MG TAB PO SCH (08:27)
[2019-09-04] MEDS: BUTALB/APAP/CAFF 50-325-40MG TAB PO PRN (08:27)
[2019-09-04] MEDS: PANTOPRAZOLE 40 MG TABLET PO SCH (08:28)
[2019-09-04] MEDS: ACYCLOVIR 200 MG CAP PO SCH ×2 (08:28→15:43)
[2019-09-04 08:39] VITALS: PULSE 76
[2019-09-04] MEDS ORDERED: predniSONE 20 MG TAB PO SCH (09:00)
--- NOTE | 2019-09-04 11:13 | P.PN ---
Subjective Progress Note Date: 09/04/19 Principal diagnosis: Left upper and lower lobe community-acquired pneumonia The patient is seen today 09/04/2019 in follow-up on the regular medical floor. She is awake and alert in no acute distress. Resting comfortably in bed. He is maintaining O2 saturations in the 90s on room air. She's been afebrile. Lab results reveal a WBC of 22.1, hemoglobin 11.4. Sodium 139. Potassium 5.0. Creatinine 0.69. AST 168. ALT 155. Hepatitis screen was nonreactive. She remains on ceftriaxone and Levaquin. Continue on Symbicort, bronchodilators, oral prednisone. Objective - Vital Signs Vital signs: Vital Signs Temp 97.9 F 09/04/19 07:00 Pulse 76 09/04/19 08:38 Resp 15 09/04/19 07:00 BP 149/84 09/04/19 07:00 Pulse Ox 90 L 09/04/19 07:00 Intake & Output 09/03/19 09/04/19 09/04/19 18:59 06:59 18:59 Intake Total 540 Balance 540 Intake: Oral 540 Other: # Voids 3 1 2 - Exam GENERAL EXAM: Alert, very pleasant 63-year-old female patient, on room air, comfortable in no apparent distress. HEAD: Normocephalic. EYES: Normal reaction of pupils, equal size. NOSE: Clear with pink turbinates. THROAT: No erythema or exudates. NECK: No masses, no JVD. CHEST: No chest wall deformity. LUNGS: Equal air entry with scattered rhonchi throughout the left lung, faint crackles in the bases. CVS: S1 and S2 normal with no audible murmur, regular rhythm. ABDOMEN: No hepatosplenomegaly, normal bowel sounds, no guarding or rigidity. SPINE: No scoliosis or deformity SKIN: No rashes CENTRAL NERVOUS SYSTEM: No focal deficits, tone is normal in all 4 extremities. EXTREMITIES: There is no peripheral edema. No clubbing, no cyanosis. Peripheral pulses are intact. - Labs CBC & Chem 7: 09/03/19 08:55 09/03/19 08:55 Assessment and Plan Assessment: 1 Acute left upper and lower lobe pneumonia, community-acquired, CoVID 19 negative 2 Gastroesophageal reflux disease 3 Hypertension 4 Hyperlipidemia 5 ALLERGIC rhinitis Plan: The patient was seen and evaluated by Dr. Rose Currently stable from the pulmonary standpoint Does not require home oxygen She's been converted to oral prednisone. Follow-up in our office in 1-2 weeks' time She is encouraged to call sooner if any recurrence of symptoms or other questions or concerns I, the cosigning physician, performed a history & physical examination of the patient. Lungs sounds with scattered rhonchi throughout the left lung, crackles in the posterior bases. Maintaining good O2 saturations in the 90s on room air. I discussed the assessment and plan of care with my nurse practitioner, Annie Knox. I attest to the above note as dictated by her.
[2019-09-04 13:40] VITALS: BMI 32.1
--- NOTE | 2019-09-04 14:22 | PN ---
PROGRESS NOTE DATE OF SERVICE: 09/04/2019 REASON FOR FOLLOWUP: Pneumonia. INTERVAL HISTORY: The patient is currently afebrile. The patient is breathing comfortably. The patient's cough has decreased in intensity, mostly dry. No nausea, no vomiting. No abdominal pain, no diarrhea. PHYSICAL EXAMINATION: Blood pressure is 149/84 with a pulse of 79, temperature 97.8. She is 90% on room air. General description is a middle-aged female, up in the bed in no distress. RESPIRATORY SYSTEM: Unlabored breathing, decreased breath sounds at the base, no wheeze. HEART: S1, S2. Regular rate and rhythm. ABDOMEN: Soft, no tenderness. LABS: No new labs have been obtained. Blood and sputum cultures have been negative. DIAGNOSTIC IMPRESSION AND PLAN: Patient with pneumonia, likely community-acquired, overall clinical improvement on Rocephin. Finish therapy with oral Ceftin for another week and close outpatient followup. MMODL / IJN: [id number] /
--- NOTE | 2019-09-04 14:29 | P.DS ---
Providers Date of admission: 08/28/19 09:41 Expected date of discharge: 09/04/19 Attending physician: Wanda Ly MD Consults: 08/27/19 23:27 Consult Physician Routine Consulting Provider: Dheeraj Briceño Consult Reason/Comments: pneumonia, sepsis Do you want consulting provider notified?: Yes 08/29/19 02:29 Consult Physician Routine Consulting Provider: Ibis Phelan Consult Reason/Comments: r/o covid Do you want consulting provider notified?: Yes Primary care physician: Physician Nonsta Hospital Course: Patient is a 63-year-old female with PMH of hypertension, dyslipidemia and GERD the presented to the ED for productive cough and shortness of breath along with fever and chills. In the ED, chest x-ray showed a left lower lobe infiltrate. CT angiogram of the chest was performed due to elevated d-dimer which showed consolidation of the left lower lobe with no PE. She met sepsis criteria at that time with leukocytosis, tachycardia and positive source of infection. Her lactic acid was negative. Coronavirus testing was negative. Her pro-calcitonin was slightly elevated at 0.35. Her CRP and LDH along with AST which are markers of coronavirus were also elevated. She was started on treatment with Rocephin and levofloxacin as per infectious disease recommendations and sputum and blood cultures were collected. Pulmonology followed the patient during her hospitalization. Serial chest x-rays were performed which showed improvement in her left basilar opacity. Blood cultures are negative at 144 hours. Sputum culture was negative. Infectious disease recommended completing course of Ceftin for antibiotics on discharge. Pulmonology recommended DuoNeb scheduled and as needed for shortness of breath and wheezing along with Symbicort and pred nisone by mouth. She did have some oral lesions which was thought to be related to herpes simplex. She was given a course of acyclovir. She had elevated liver enzymes which was partially worked up. Liver ultrasound was unremarkable. Hepatitis panel was negative. Lipid panel was performed which showed triglyceride of 248 and HDL 35. Patient was advised to follow-up for continued workup of her transaminitis. Patient was seen and examined this morning. No acute events overnight. Patient reports considerable improvement in her breathing. She has been ambulating in her room without much difficulties. Patient states that she will self isolate in [place] for 2 weeks prior to her trip back to [place]. She denies any chest pain, shortness breath or palpitations. No nausea or vomiting. No fever or chills. General: [non toxic], [no distress], [appears at stated age] Derm: [warm], [dry] Head: [atraumatic], [normocephalic], [symmetric] Eyes: [EOMI], [no lid lag], [anicteric sclera] Mouth: [no lip lesion], [mucus membranes moist] Cardiovascular: [S1S2 reg], [no murmur], [positive DP pulse bilateral], Lungs: [Decreased breath sounds bilateral], [scattered rhonchi bilaterally, improved] , [no accessory muscle use] Abdominal: [soft], [ nontender to palpation], [no guarding], [no appreciable organomegaly] Ext: [no gross muscle atrophy], [no edema], [no contractures] Neuro: [no focal neuro deficits] Psych: [Alert], [oriented], [appropriate affect] Sepsis related to community-acquired pneumonia (sepsis resolved) Herpes simplex Elevated liver enzymes Hypertension Dyslipidemia GERD Patient initially met sepsis criteria which has resolved. Chest x-ray this morning shows improving left basilar opacity with new right-sided atelectasis. Blood culture negative at 144 hours. Sputum culture negative. Pro-calcitonin elevated 0.35. Coronavirus testing negative. Plans: Transitioned to Ceftin to complete a total of 10 days on discharge. Patient passed 6 minute walk test and does not need any oxygen on discharge. Prednisone taper prescribed. Tessalon Perles as needed for cough. Patient will be discharged with albuterol inhaler as needed. Plans: Continue course of acyclovir for 1 more day. AST 168, ALT 155, alkaline phosphatase within normal limits. Liver ultrasound is unremarkable. Hepatitis panel negative. Lipid panel shows triglyceride of 48 and HDL of 35. Plans: Possibly related to acyclovir? Patient will need to follow-up in the outpatient setting for continued workup of her transaminitis. BP 149/84. Plans: Continue lisinopril. Monitor vitals, adjust medications as necessary. Plans: Continue Lipitor by mouth. Plans: Tums as needed. [Patient admitted for pneumonia and sepsis. Cultures negative. Transitioned to oral antibiotics on discharge. Prednisone taper on discharge. Follow up with pulmonology within 1 week. Repeat 6 to walk test prior to discharge, discussed with nursing. This complex discharge took about 35 minutes to complete.] Pertinent Studies: Chest x-ray, chest CTA, liver ultrasound Patient Condition at Discharge: Stable Plan - Discharge Summary Discharge Rx Participant: No New Discharge Prescriptions: New predniSONE See Taper PO DIRECTED #20 tab Pantoprazole [Protonix] 40 mg PO AC-BID #14 tablet. Benzonatate [Effie Bryant] 200 mg PO TID PRN #10 cap PRN Reason: Cough Albuterol Inhaler [Ventolin Hfa Inhaler] 1 puff INHALATION RT-QID PRN #1 inhaler PRN Reason: Shortness Of Breath Acyclovir 400 mg PO AC-TID #3 tablet Cefuroxime Axetil [Ceftin] 500 mg PO BID 5 Days #10 tab Continue Butalb/APAP/Caff 50-325-40Mg [Fioricet 50-325-40] 2 tab PO Q6H PRN PRN Reason: Headache Nystatin 100,000Unit/gm Cream [Mycostatin Cream] 1 applic TOPICAL BID Vitamin B Complex 1 tab PO DAILY Multivit-Min/Iron/Folic/Lutein [Centrum Silver Women Tablet] 1 tab PO DAILY Fluticasone Nasal Union [Flonase Nasal Union] 2 spr EA NOSTRIL DAILY Calcium Carbonate/Vitamin D3 [Calcium 600-Vit D3 400 Tablet] 1 tab PO DAILY Aspirin [Adult Low Dose Aspirin EC] 81 mg PO HS LORazepam [Ativan] 1 mg PO BID Atorvastatin [Lipitor] 40 mg PO HS Lisinopril 40 mg PO DAILY Discharge Medication List Aspirin [Adult Low Dose Aspirin EC] 81 mg PO HS 08/29/19 [History] Atorvastatin [Lipitor] 40 mg PO HS 08/29/19 [History] Butalb/APAP/Caff 50-325-40Mg [Fioricet 50-325-40] 2 tab PO Q6H PRN 08/29/19 [History] Calcium Carbonate/Vitamin D3 [Calcium 600-Vit D3 400 Tablet] 1 tab PO DAILY 08/29/19 [History] Fluticasone Nasal Union [Flonase Nasal Union] 2 spr EA NOSTRIL DAILY 08/29/19 [History] LORazepam [Ativan] 1 mg PO BID 08/29/19 [History] Lisinopril 40 mg PO DAILY 08/29/19 [History] Multivit-Min/Iron/Folic/Lutein [Centrum Silver Women Tablet] 1 tab PO DAILY [History] Nystatin 100,000Unit/gm Cream [Mycostatin Cream] 1 applic TOPICAL BID 08/29/19 [History] Vitamin B Complex 1 tab PO DAILY 08/29/19 [History] Acyclovir 400 mg PO AC-TID #3 tablet 09/04/19 [Rx] Albuterol Inhaler [Ventolin Hfa Inhaler] 1 puff INHALATION RT-QID PRN #1 inhaler 09/04/19 [Rx] Benzonatate [Tessalon Perles] 200 mg PO TID PRN #10 cap 09/04/19 [Rx] Cefuroxime Axetil [Ceftin] 500 mg PO BID 5 Days #10 tab 09/04/19 [Rx] Pantoprazole [Protonix] 40 mg PO AC-BID #14 tablet. 09/04/19 [Rx] predniSONE See Taper PO DIRECTED #20 tab 09/04/19 [Rx] Follow up Appointment(s)/Referral(s): Annie Knox NPC [Nurse Practitioner] - 09/12/19 3:15 pm Nonstaff,Physician [Primary Care Provider] - 1-2 days Ambulatory/Diagnostic Orders: Complete Blood Count w/diff [LAB.AMB] Time Frame: 3 Days, Location: None Selected Patient Instructions/Handouts: Community Acquired Pneumonia (DC) Activity/Diet/Wound Care/Special Instructions: Diet: Low salt FU PCP within 3 days of DC. FU Pulmonology within 1 week of DC. Take all medications as advised. Come back to the ED for worsening shortness of breath, fevers > 100.4F or chest pain. Discharge Disposition: HOME SELF-CARE
--- NOTE | 2019-09-05 16:32 | CDI ---
Documentation Clarification Form Date: 09/05/2019 03:06:21 PM From: Olivia Padron RN, CCDS Admit Date: 08/28/2019 09:41:00 AM Patient Name: Chelsi Natarajan Visit Number: [id number] Discharge Date: 09/04/2019 03:30:00 PM ATTENTION: The Clinical Documentation Specialists (CDI) and [facility] Coding Staff appreciate your assistance in clarifying documentation. Please respond to the clarification below the line at the bottom and electronically sign. The CDI & [facility] Coding staff will review the response and follow-up if needed. Please note: Queries are made part of the Legal Health Record. If you have any questions, please contact the author of this message via ITS. Dr. Silvio Gross 08/26 Rule out COVID 19 was in the H/P indicate location of documentation in the H/P 08/28 COVID 19 ruled out, tested negative x2 per Dr. Thomas. Patient history/risk factors: [heart disease, cancer, Clinical Indicators: 63-year-old female present to ED on 08/26 with productive couth shortness of breath with fever and shills. She was admitted for pneumonia with sepsis. 08/26 Vital signs: 139/80 108 100.6 96 % RA 08/26 CXR: mild linear infiltrate and atelectasis left lower lobe 08/27 CTA: No evidence of pulmonary embolism. There is pneumonia in the left lower lobe and also small pneumonia in the lingual left upper lobe. 08/26 Labs: Procalcitonin 0.35, LDH 918, CRP 55.5, and Lactic acid 1.1 WBC 25.6 08/26 Viral Panel: Coronavirus (PCR) Not detected, Hepatitis panel: hep a, Hep Bs antigen, Hep B core, Robe C igG all negative. Treatment: 08/27-09/03 Dropcon+Flu/santo plus Isolation precautions Rocephin 1 gm IV q 24 hrs Levaquin 750 mg po daily 08/28-09/03 Zithromycin 500 mg IV once 08/26 then 500 mg po daily Duoneb 0.5 mg inhalation RT q 4 h prn .9NS @ 100 mls/hr Solu-Medrol 60 IV q6 hrs, 08/31 continue on Prednisone taper per orders Acyclovir 400 mg before meals tid Incentive spirometer, Monitor O2 sats titrate Cefton 500 bid Albuterol inhaler 1 puff 4 x day 08/29-09/03 pulmonary: Pneumonia, community-acquired, left lower lobe and upper lobe with COVID-19 negative ID: Patient admitted to hospital with sepsis source of pneumonia, likely community acquired. the patient is currently covered with Rocephin and Levaquin to continue while waiting for culture to finalize 08/02 ID: Patient with pneumonia likely community-acquired. Sputum has been negative. Blood culture negative as well. Clinically responded to Rocephin and Levaquin. Finish therpy with oral Ceftin. 09/03 DCS/hospital course: " Patient states that she will self isolate in [place] for 2 weeks prior to her trip back to [place]". In order to capture the severity of condition, please clarify if the above treatment/clinical indicators signify: COVID-19 ruled out False negative, treating for COVID-19 Infection (specify any possible COVID conditions) Other, please specify Unable to determine (Last Form Revision: June 2019) covid ruled out MTDD
== END 2019-09-04 15:30 | disposition home or self-care (01) | DRG 871 ==
LOC: EC 19:55 → 6NMEDSUR 23:27 → OBSVTOIN 08-28 09:41 → 4SSUR 08-28 13:28
PROVIDERS: ADMIT Internal Medicine; ATTEND Internal Medicine
DX: A41.9 Sepsis, unspecified organism (principal); J18.9 Pneumonia, unspecified organism; R04.2 Hemoptysis; J98.11 Atelectasis; Z20.828 Contact with and (suspected) exposure to other viral communicable diseases; K21.9 Gastro-esophageal reflux disease without esophagitis; I10 Essential (primary) hypertension; F41.9 Anxiety disorder, unspecified; F32.9 Major depressive disorder, single episode, unspecified; E78.5 Hyperlipidemia, unspecified; J30.9 Allergic rhinitis, unspecified; B00.1 Herpesviral vesicular dermatitis; R74.0 Nonspecific elevation of levels of transaminase and lactic acid dehydrogenase [LDH]; R74.8 Abnormal levels of other serum enzymes; E87.5 Hyperkalemia; T38.0X5A Adverse effect of glucocorticoids and synthetic analogues, initial encounter; Z79.82 Long term (current) use of aspirin; Z79.899 Other long term (current) drug therapy; Z98.890 Other specified postprocedural states; Z86.14 Personal history of Methicillin resistant Staphylococcus aureus infection; Z87.891 Personal history of nicotine dependence; Z86.19 Personal history of other infectious and parasitic diseases; Z91.048 Other nonmedicinal substance allergy status
CPT/HCPCS: 36415; 71045; 71046; 71275; 76705; 80053; 80061; 80074; 82728; 83605; 83615; 83735; 84100; 84132; 84145; 85025; 85379; 85610; 85730; 86140; 87040; 87070; 87205; 93005; 94640; 96365; 96372; 96375; 99291